=== PATIENT | female | born 1965 | race Caucasian/White ===

== ENCOUNTER → 2016-07-29 | Outpatient (CLI) | payer MEDICARE, OTHER ==
--- NOTE | 2016-07-29 10:14 | FL ---
EXAMINATION TYPE: FL barium swallow DATE OF EXAM ORDERED: 07/29/2016 10:10 AM HISTORY: Dysphagia. COMPARISON: None. FINDINGS: The esophagus distended normally with air and barium without evidence of obstructing or co nstricting disease. The mucosal pattern throughout the esophagus is normal. There is no significant h iatal hernia or reflux. Limited views of the stomach are normal. IMPRESSION: NORMAL AIR-CONTRAST ESOPHAGRAM. Fluoroscopy time: 1 minute
== END | disposition home or self-care (01) ==
LOC: RADFLWHC 09:26
PROVIDERS: ATTEND Otolaryngology
DX: K44.9 Diaphragmatic hernia without obstruction or gangrene (principal)
CPT/HCPCS: 74220

== ENCOUNTER → 2016-07-31 | Outpatient (CLI) | payer MEDICARE, OTHER | END | disposition home or self-care (01) | LOC: PTMAIN 09:10 | PROVIDERS: ATTEND Otolaryngology | DX: K21.9 Gastro-esophageal reflux disease without esophagitis (principal); J44.9 Chronic obstructive pulmonary disease, unspecified; J45.909 Unspecified asthma, uncomplicated; M79.7 Fibromyalgia | CPT/HCPCS: 31579 ==

== ENCOUNTER 2016-08-11 17:25 | Inpatient (IN) | payer MEDICARE, OTHER ==
[2016-08-11] MEDS ORDERED: methylPREDNISolone SOD SUCCI 125 MG/2 ML VIAL IV STA (18:28)
[2016-08-11] MEDS ORDERED: ALBUTEROL NEBULIZED 7.5 MG, IPRATROPIUM NEBULIZED 0.5 MG, SODIUM CHLORIDE 0.9% NEBULIZ ... INHALATION ONE ×3 (18:28)
[2016-08-11] MEDS ORDERED: SODIUM CHLORIDE 0.9% 1,000 ML IV STA (18:28)
--- NOTE | 2016-08-11 18:34 | ED ---
General Adult HPI - General Source: patient, RN notes reviewed Mode of arrival: ambulatory Limitations: no limitations <Ktarin Almanza - Last Filed: 08/11/16 21:21> <Paco Ha - Last Filed: 08/11/16 21:30> - General Chief complaint: Upper Respiratory Infection Stated complaint: dehydration Time Seen by Provider: 08/11/16 18:22 - History of Present Illness Initial comments: 50 yo female presents to the ER with cc of cough cold like symptoms. Patient states she's been sick for about 4 days. Patient states she went to her doctor on she was started on antibiotics and steroids. Patient states that she just is not getting better. Patient states that she has had a cough she has now developed some sputum production she does admit to fevers on and off. Patient states that she does have COPD she is on a breathing treatments however she lost her breathing machine. Patient states that she just does not feel like she is getting better. Patient states that she's been trying the antibiotics and steroids without any improvement so she thought that she should be reevaluated. Patient states that she is also unable to clench her thirst as well and that was concerning for her. Patient denies any recent fever, chills, chest pain, back pain, abdominal pain, nausea vomiting, numbness or tingling, dysuria or hematuria, constipation or diarrhea, headaches or visual changes, or any other current symptoms. (Katrin Almanza) - Related Data Home Medications Medication Instructions Recorded Confirmed ALPRAZolam [Xanax] 0.5 mg PO TID PRN 03/02/14 08/11/16 Butalb/Acetaminophen/Caffeine 1 tab PO QID PRN 03/02/14 08/11/16 [Fioricet 50-325-40 mg Tablet] Dicyclomine [Bentyl] 20 mg PO QID 03/02/14 08/11/16 Hydrocodone/Acetaminophen [[place] 1 tab PO TID 03/02/14 08/11/16 10-325] Montelukast [Singulair] 10 mg PO HS 03/02/14 08/11/16 lamoTRIgine [LaMICtal] 200 mg PO BID 03/02/14 08/11/16 Aspirin EC [Ecotrin Low Dose] 81 mg PO HS 06/04/16 08/11/16 Atenolol [Tenormin] 25 mg PO BID 06/04/16 08/11/16 Desvenlafaxine Succinate [Pristiq] 100 mg PO DAILY 06/04/16 08/11/16 Estrogens, Conjugated [Premarin] 0.9 mg PO DAILY 06/04/16 08/11/16 Gabapentin 600 mg PO TID 06/04/16 08/11/16 Omeprazole [PriLOSEC] 40 mg PO DAILY 08/11/16 08/11/16 Previous Rx's Medication Instructions Recorded Ondansetron [Zofran] 4 mg PO Q8HR PRN #15 tab 06/04/16 Allergies Allergy/AdvReac Type Severity Reaction Status Date / Time clindamycin Allergy Anaphylaxis Verified 08/11/16 19:16 divalproex sodium Allergy Rash/Hives Verified 08/11/16 19:16 [From Depakote] moxifloxacin [From Avelox] Allergy Unknown Verified 08/11/16 19:16 topiramate [From Topamax] Allergy Unknown Verified 08/11/16 19:16 zolmitriptan [From Zomig] Allergy Unknown Verified 08/11/16 19:16 acetaminophen [From Percocet] AdvReac Nausea Verified 08/11/16 19:16 oxycodone [From Percocet] AdvReac Nausea Verified 08/11/16 19:16 Review of Systems ROS Other: All systems not noted in ROS Statement are negative. <Katrin Almanza - Last Filed: 08/11/16 21:21> ROS Other: All systems not noted in ROS Statement are negative. <Paco Ha - Last Filed: 08/11/16 21:30> ROS Statement: Those systems with pertinent positive or pertinent negative responses have been documented in the HPI. Past Medical History Past Medical History: COPD, Fibromyalgia Additional Past Medical History / Comment(s): HERNIATED DISC, HEADACHES History of Any Multi-Drug Resistant Organisms: None Reported Past Surgical History: Ear Surgery, Hysterectomy Additional Past Surgical History / Comment(s): NASAL SURGERY; LUNG SURGERY - LOBECTOMY Past Psychological History: Anxiety, Depression Smoking Status: Former smoker Past Alcohol Use History: None Reported Past Drug Use History: None Reported <Katrin Almanza - Last Filed: 08/11/16 21:21> General Exam Limitations: no limitations General appearance: alert, in no apparent distress ENT exam: Present: normal exam, mucous membranes moist Neck exam: Present: normal inspection. Absent: tenderness, meningismus, lymphadenopathy Respiratory exam: Present: rhonchi, decreased breath sounds (Diffuse). Absent: respiratory distress, chest wall tenderness, accessory muscle use Cardiovascular Exam: Present: regular rate, normal rhythm, normal heart sounds. Absent: systolic murmur, diastolic murmur, rubs, gallop, clicks GI/Abdominal exam: Present: soft, normal bowel sounds. Absent: distended, tenderness, guarding, rebound, rigid Neurological exam: Present: alert, oriented X3, CN II-XII intact. Absent: motor sensory deficit Psychiatric exam: Present: normal affect, normal mood Skin exam: Present: warm, dry, intact, normal color. Absent: rash <Katrin Almanza - Last Filed: 08/11/16 21:21> Course <Katrin Almanza - Last Filed: 08/11/16 21:21> <Paco Ha - Last Filed: 08/11/16 21:30> Vital Signs 08/11/16 08/11/16 08/11/16 18:00 19:35 19:51 Temperature 98.0 F Pulse Rate 73 60 60 Respiratory 16 Rate Blood Pressure 101/56 O2 Sat by Pulse 93 L Oximetry 08/11/16 08/11/16 08/11/16 20:19 20:29 21:11 Temperature Pulse Rate 70 73 Respiratory Rate Blood Pressure O2 Sat by Pulse 89 L Oximetry - Reevaluation(s) Reevaluation #1: 08/11/16 21:29 I did personally do a [id number] examination the patient she is had a cough and shortness of breath for last 5 days. She is a former smoker who quit 6 years ago. She is influenza type B positive. Her lung sounds are diminished with expiratory wheezes. I did discuss the findings with her she will be admitted I did discuss the case with Dr. Kebede. (Paco Ha) Medical Decision Making - Lab Data Result diagrams: 08/11/16 19:30 08/11/16 19:30 - Radiology Data Radiology results: report reviewed, image reviewed <Katirn Almanza - Last Filed: 08/11/16 21:21> - Lab Data Result diagrams: 08/11/16 19:30 08/11/16 19:30 <LelandPaco - Last Filed: 08/11/16 21:30> - Medical Decision Making 50-year-old female presents for cough cold runny nose like symptoms. At this time patient does appear to have rhonchi throughout the lung angu[place] and continues to be low oxygen even after the breathing treatment. Patient does appear to be an associated PD exacerbation patient also does have basilar atelectasis due to the fever and the diagnosis of influenza we will start antibiotics as well as Tamiflu as well as steroids as well as breathing treatments for the patient we did place the patient on oxygen. She will be this time. Patient agreed with the plan. (Katrin Almanza) - Lab Data Lab Results 08/11/16 08/11/16 08/11/16 Range/Units 19:30 19:30 20:15 WBC 7.6 (3.8-10.6) k/uL RBC 4.76 (3.80-5.40) m/uL Hgb 14.1 (11.4-16.0) gm/dL Hct 43.5 (34.0-46.0) % MCV 91.4 (80.0-100.0) fL MCH 29.7 (25.0-35.0) pg MCHC 32.5 (31.0-37.0) g/dL RDW 13.6 (11.5-15.5) % Plt Count 205 (150-450) k/uL Neutrophils % 65 % Lymphocytes % 26 % Monocytes % 5 % Eosinophils % 0 % Basophils % 1 % Neutrophils # 4.9 (1.3-7.7) k/uL Lymphocytes # 2.0 (1.0-4.8) k/uL Monocytes # 0.3 (0-1.0) k/uL Eosinophils # 0.0 (0-0.7) k/uL Basophils # 0.1 (0-0.2) k/uL Sodium 142 (137-145) mmol/L Potassium 4.1 (3.5-5.1) mmol/L Chloride 104 (98-107) mmol/L Carbon Dioxide 26 (22-30) mmol/L Anion Gap 12 mmol/L BUN 12 (7-17) mg/dL Creatinine 0.71 (0.52-1.04) mg/dL Est GFR (MDRD) Af Amer >60 (>60 ml/min/1.73 sqM) Est GFR (MDRD) Non-Af >60 (>60 ml/min/1.73 sqM) Glucose 108 H (74-99) mg/dL Calcium 9.4 (8.4-10.2) mg/dL Total Bilirubin 0.4 (0.2-1.3) mg/dL AST 34 (14-36) U/L ALT 36 (9-52) U/L Alkaline Phosphatase 111 (38-126) U/L Total Protein 7.4 (6.3-8.2) g/dL Albumin 4.0 (3.5-5.0) g/dL Influenza Type A RNA Not Detected (Not Detectd) Influenza Type B (PCR) Detected H (Not Detectd) Group A Strep Rapid (Negative) 08/11/16 Range/Units 20:15 WBC (3.8-10.6) k/uL RBC (3.80-5.40) m/uL Hgb (11.4-16.0) gm/dL Hct (34.0-46.0) % MCV (80.0-100.0) fL MCH (25.0-35.0) pg MCHC (31.0-37.0) g/dL RDW (11.5-15.5) % Plt Count (150-450) k/uL Neutrophils % % Lymphocytes % % Monocytes % % Eosinophils % % Basophils % % Neutrophils # (1.3-7.7) k/uL Lymphocytes # (1.0-4.8) k/uL Monocytes # (0-1.0) k/uL Eosinophils # (0-0.7) k/uL Basophils # (0-0.2) k/uL Sodium (137-145) mmol/L Potassium (3.5-5.1) mmol/L Chloride (98-107) mmol/L Carbon Dioxide (22-30) mmol/L Anion Gap mmol/L BUN (7-17) mg/dL Creatinine (0.52-1.04) mg/dL Est GFR (MDRD) Af Amer (>60 ml/min/1.73 sqM) Est GFR (MDRD) Non-Af (>60 ml/min/1.73 sqM) Glucose (74-99) mg/dL Calcium (8.4-10.2) mg/dL Total Bilirubin (0.2-1.3) mg/dL AST (14-36) U/L ALT (9-52) U/L Alkaline Phosphatase (38-126) U/L Total Protein (6.3-8.2) g/dL Albumin (3.5-5.0) g/dL Influenza Type A RNA (Not Detectd) Influenza Type B (PCR) (Not Detectd) Group A Strep Rapid Negative (Negative) Disposition Time of Disposition: 21: Decision Date: 08/11/16 Decision Time: 21:22 <Katrin Almanza - Last Filed: 08/11/16 21:21> <Paco Ha - Last Filed: 08/11/16 21:30> Clinical Impression: COPD exacerbation, Failure of outpatient treatment, Influenza B Disposition: ADMITTED IP TO THIS HOSP Condition: Stable Referrals: Yakov Kebede MD [Primary Care Provider] - 1-2 days
[2016-08-11 20:14] LABS: Basophils # (A) 0.1 k/uL (0-0.2); Basophils % (A) 1 %; CH 30.8; CHCM 33.9; Eosinophils % (A) 0 %; HCT 43.5 % (34.0-46.0); HDW 2.66; HGB 14.1 gm/dL (11.4-16.0); Luc # (Auto) 0.29; Luc % (Auto) 4; Lymphocytes % (A) 26 %; MCH 29.7 pg (25.0-35.0); MCHC 32.5 g/dL (31.0-37.0); MCV 91.4 fL (80.0-100.0); Mean Platelet Volume 8.8; Monocytes # (A) 0.3 k/uL (0-1.0); Monocytes % (A) 5 %; Neutrophils # (A) 4.9 k/uL (1.3-7.7); Neutrophils % (A) 65 %; RBC 4.76 m/uL (3.80-5.40); RDW 13.6 % (11.5-15.5); WBC 7.6 k/uL (3.8-10.6); WBC (Perox) 7.34
[2016-08-11 20:16] LABS: ALT 36 U/L (9-52); AST 34 U/L (14-36); Alkaline Phosphatase 111 U/L (38-126); Anion Gap 12 mmol/L; Blood Urea Nitrogen 12 mg/dL (7-17); Calcium 9.4 mg/dL (8.4-10.2); Carbon Dioxide 26 mmol/L (22-30); Chloride 104 mmol/L (98-107); Glucose 108 mg/dL (74-99); Non-African American GFR(MDRD) >60 (>60 ml/min/1.73 sqM); Potassium 4.1 mmol/L (3.5-5.1); Sodium 142 mmol/L (137-145); Total Bilirubin 0.4 mg/dL (0.2-1.3); Total Protein 7.4 g/dL (6.3-8.2)
[2016-08-11] MEDS ORDERED: OSELTAMIVIR 75 MG CAP PO STA (21:09)
--- NOTE | 2016-08-11 21:10 | XR ---
EXAMINATION TYPE: XR chest 2V DATE OF EXAM: 08/11/2016 8:48 PM COMPARISON: Prior chest x-ray 26 March 2016 HISTORY: Cough, shortness of breath, COPD TECHNIQUE: Frontal and lateral views of the chest are obtained. FINDINGS: There is no pleural effusion, or pneumothorax seen. The cardiac silhouette size is within normal limits. Difficult to exclude some patchy density at the lung bases. There are prominent lung volumes. The osseous structures are intact. IMPRESSION: There may be some basilar atelectasis, difficult to exclude early airspace disease, foll ow-up as indicated.
[2016-08-11] MEDS ORDERED: ONDANSETRON 4 MG TAB PO PRN (21:25)
[2016-08-11] MEDS ORDERED: BUTALB/APAP/CAFF 50-325-40MG TAB PO PRN (21:25)
[2016-08-12] MEDS: methylPREDNISolone SOD SUCCI 125 MG/2 ML VIAL IV SCH ×4 (00:43→17:37)
[2016-08-12] MEDS: ALPRAZolam 0.5 MG TAB PO PRN (02:42)
[2016-08-12] MEDS: HYDROcodone/APAP 10-325MG 1 EACH TAB PO SCH ×4 (02:42→22:18)
[2016-08-12] MEDS: DICYCLOMINE 20 MG TAB PO SCH ×5 (02:43→20:58)
[2016-08-12] MEDS: GABAPENTIN 300 MG CAP PO SCH ×4 (02:43→20:58)
[2016-08-12 07:39] LABS: Glucose,Whole Blood 151 mg/dL (75-99)
[2016-08-12] MEDS: ATENOLOL 25 MG TAB PO SCH ×2 (08:18→20:59)
[2016-08-12] MEDS: DESVENLAFAXINE SUCCINATE 50 MG TAB.ER.24H PO SCH (08:21)
[2016-08-12] MEDS: ESTROGENS, CONJUGATED 0.3 MG TAB PO SCH (08:22)
[2016-08-12] MEDS: PANTOPRAZOLE 40 MG TABLET PO SCH (08:22)
[2016-08-12] MEDS: lamoTRIgine 100 MG TAB PO SCH ×2 (08:22→20:57)
[2016-08-12] MEDS: INSULIN LISPRO (humaLOG) 300 UNIT/3 ML VIAL SQ SCH ×4 (08:23→21:00)
[2016-08-12] MEDS ORDERED: BISACODYL 5 MG TABLET.DR PO PRN (08:25)
[2016-08-12 08:45] LABS: Basophils % (A) 0 %; CH 30.4; CHCM 33.1; Eosinophils % (A) 0 %; HCT 37.7 % (34.0-46.0); HDW 2.56; HGB 12.2 gm/dL (11.4-16.0); Luc # (Auto) 0.13; Luc % (Auto) 1; Lymphocytes % (A) 10 %; MCH 29.9 pg (25.0-35.0); MCHC 32.3 g/dL (31.0-37.0); MCV 92.4 fL (80.0-100.0); Monocytes # (A) 0.1 k/uL (0-1.0); Monocytes % (A) 1 %; Neutrophils % (A) 88 %; RBC 4.08 m/uL (3.80-5.40); RDW 13.4 % (11.5-15.5); WBC 10.3 k/uL (3.8-10.6); WBC (Perox) 10.72
[2016-08-12] MEDS: SODIUM CHLORIDE 0.9% 1,000 ML IV SCH ×2 (08:48→20:55)
[2016-08-12 08:49] LABS: ALT 32 U/L (9-52); AST 28 U/L (14-36); Alkaline Phosphatase 107 U/L (38-126); Anion Gap 13 mmol/L; Blood Urea Nitrogen 13 mg/dL (7-17); Calcium 9.2 mg/dL (8.4-10.2); Carbon Dioxide 22 mmol/L (22-30); Chloride 110 mmol/L (98-107); Glucose 181 mg/dL (74-99); Non-African American GFR(MDRD) >60 (>60 ml/min/1.73 sqM); Potassium 4.5 mmol/L (3.5-5.1); Sodium 145 mmol/L (137-145); Total Bilirubin 0.3 mg/dL (0.2-1.3); Total Protein 6.8 g/dL (6.3-8.2)
[2016-08-12] MEDS: DOCUSATE 100 MG CAP PO SCH ×2 (09:45→20:58)
[2016-08-12] MEDS: OSELTAMIVIR 75 MG CAP PO SCH ×2 (09:45→20:57)
[2016-08-12 11:48] LABS: Glucose,Whole Blood 141 mg/dL (75-99)
--- NOTE | 2016-08-12 12:32 | P.CNPUL ---
History of Present Illness Consult date: 08/12/16 Reason for consult: dyspnea, cough, COPD, other Chief complaint: Shortness of breath cough wheezing History of present illness: This is a 50-year-old female well-known to my service. She presented to the emergency room with complaints of cough and cold-like symptoms. She's been sick for about 4 days prior to admission. She apparently went to her primary doctor started on antibiotics and steroids. After that, she was just not getting any better. For that reason she presented to the emergency department. A chest x-ray really did not show any acute infiltrates. She apparently had influenza testing was positive. She was admitted and placed in isolation. Would not consider medications as yet. Again her primary complaints include chest tightness wheezing cough shortness of breath and some phlegm production. Review of Systems A 12 point review of system is positive for chest tightness wheezing cough shortness breath plan phlegm production under the pulmonary system. The rest of the 12 point review of system is essentially unremarkable. Past Medical History Past Medical History: COPD, Fibromyalgia, GERD/Reflux Additional Past Medical History / Comment(s): HERNIATED DISC, HEADACHES History of Any Multi-Drug Resistant Organisms: None Reported Past Surgical History: Ear Surgery, Hysterectomy Additional Past Surgical History / Comment(s): NASAL SURGERY; LUNG SURGERY - LOBECTOMY Past Anesthesia/Blood Transfusion Reactions: No Reported Reaction Past Psychological History: Anxiety, Depression Smoking Status: Former smoker Past Alcohol Use History: None Reported Past Drug Use History: None Reported - Past Family History Father Additional Family Medical History / Comment(s): kidney Transplant Brother(s) Additional Family Medical History / Comment(s): diverticulitis, bowel resection and colostomy Mother Family Medical History: AFIB, COPD, Fibromyalgia, Hypertension, Mitral Valve Prolapse (MVP), Osteoarthritis (OA), Thyroid Disorder Medications and Allergies Home Medications Medication Instructions Recorded Confirmed Type ALPRAZolam [Xanax] 0.5 mg PO TID PRN 03/02/14 08/11/16 History Butalb/Acetaminophen/Caffeine 1 tab PO QID PRN 03/02/14 08/11/16 History [Fioricet 50-325-40 mg Tablet] Dicyclomine [Bentyl] 20 mg PO QID 03/02/14 08/11/16 History Hydrocodone/Acetaminophen [[place] 1 tab PO TID 03/02/14 08/11/16 History 10-325] Montelukast [Singulair] 10 mg PO HS 03/02/14 08/11/16 History lamoTRIgine [LaMICtal] 200 mg PO BID 03/02/14 08/11/16 History Aspirin EC [Ecotrin Low Dose] 81 mg PO HS 06/04/16 08/11/16 History Atenolol [Tenormin] 25 mg PO BID 06/04/16 08/11/16 History Desvenlafaxine Succinate [Pristiq] 100 mg PO DAILY 06/04/16 08/11/16 History Estrogens, Conjugated [Premarin] 0.9 mg PO DAILY 06/04/16 08/11/16 History Gabapentin 600 mg PO TID 06/04/16 08/11/16 History Omeprazole [PriLOSEC] 40 mg PO DAILY 08/11/16 08/11/16 History Allergies Allergy/AdvReac Type Severity Reaction Status Date / Time clindamycin Allergy Anaphylaxis Verified 08/11/16 19:16 divalproex sodium Allergy Rash/Hives Verified 08/11/16 19:16 [From Depakote] moxifloxacin [From Avelox] Allergy Unknown Verified 08/11/16 19:16 topiramate [From Topamax] Allergy Unknown Verified 08/11/16 19:16 zolmitriptan [From Zomig] Allergy Unknown Verified 08/11/16 19:16 acetaminophen [From Percocet] AdvReac Nausea Verified 08/11/16 19:16 oxycodone [From Percocet] AdvReac Nausea Verified 08/11/16 19:16 Physical Exam Osteopathic Statement: *. No significant issues noted on an osteopathic structural exam other than those noted in the History and Physical/Consult. Vitals: Vital Signs Temp Pulse Pulse Resp BP BP BP 08/12/16 07:00 97.1 F L 78 20 92/45 08/12/16 00:05 08/11/16 23:30 98.3 F 89 20 95/49 08/11/16 23:06 97.8 F 87 18 107/53 Pulse Ox 08/12/16 07:00 90 L 08/12/16 00:05 93 L 08/11/16 23:30 89 L 08/11/16 23:06 97 Intake and Output 02/14/17 02/15/17 02/15/17 22:59 06:59 14:59 Intake Total 500 240 Output Total 50 Balance 450 240 Intake: Oral 500 240 Output: Urine 50 Other: # Voids 1 Weight 58.513 kg No acute distress, oriented 3. HEENT examination is grossly unremarkable. Mucous membranes are moist. No oral lesions. TMs EACs normal. Neck supple. Full range of motion. No adenopathy. No thyromegaly. Neck veins are flat. Cardiovascular examination reveals regular rhythm rate. S1-S2 normal. No S3- S4. No murmur. Lungs reveal some expiratory wheezes. There are high-pitched. No rhonchi. Not much in way of crackles. Breath sounds are slightly diminished. Abdomen soft bowel sounds are heard. Extremities are intact. Results - Laboratory Findings CBC and BMP: 08/12/16 07:53 08/12/16 07:53 Abnormal lab findings: Abnormal Labs 08/12/16 08/12/16 08/12/16 07:25 07:53 07:53 Neutrophils # 9.0 H Chloride 110 H Glucose 181 H POC Glucose (mg/dL) 151 H 08/12/16 11:43 Neutrophils # Chloride Glucose POC Glucose (mg/dL) 141 H - Diagnostic Findings Chest x-ray: image reviewed Assessment and Plan (1) COPD exacerbation Status: Acute (2) Failure of outpatient treatment Status: Acute (3) Influenza B Status: Acute Plan: Plan We'll make sure patient's on appropriate medications. She should be on DuoNeb' s 4 times a day and when necessary. Also should be on Symbicort 160/4.52 puffs twice a day. She should receive Solu-Medrol antibiotics orally and Tamiflu. Additional recommendations suggestions are forthcoming. Chest x-ray was normal my opinion. Time with Patient: Greater than 30
[2016-08-12 13:01] LABS: Hemoglobin A1C 5.7 % (4.2-6.1)
[2016-08-12 14:06] LABS: Appearance,Urine Clear (Clear); Bilirubin,Urine Negative (Negative); Glucose,Urine (UA) 2+ (Negative); Ketones,Urine Negative (Negative); Leukocyte Esterase,Urine Negative (Negative); Nitrite,Urine Negative (Negative); Protein,Urine Negative (Negative); Specific Gravity,Urine 1.016 (1.001-1.035); UA Billing (MACRO vs. MICRO) CHEM; Urobilinogen,Urine <2.0 mg/dL (<2.0)
--- NOTE | 2016-08-12 14:34 | P.HPIM ---
History of Present Illness H&P Date: 08/11/16 Chief Complaint: Shortness of breath 50-year-old female presented on the day of admission to the emergency room with a chief complaint of frequent nonproductive cough with developing shortness of breath felt like "the flu with flulike symptoms. Patient stated that she had just not been feeling well for at least 4 days. Did go to Dr. Cantu office last and was given a prescription for antibiotics and steroids. Patient stated that she did not feel any better after starting the treatment. Patient states that she was coughing up yellowish secretions on and off. Patient states that she does have a history of COPD however she lost her machine and was not taking breathing treatments patient was seen in the emergency room influenza type B was positive. Chest x-ray in the emergency room showed some basilar atelectasis difficult to exclude early airspace disease. Given the above clinical presentation the patient was admitted to the services of the attending. Review of Systems Essentially unremarkable except as mentioned in the present illness Past Medical History Past Medical History: COPD, Fibromyalgia, GERD/Reflux Additional Past Medical History / Comment(s): HERNIATED DISC, HEADACHES History of Any Multi-Drug Resistant Organisms: None Reported Past Surgical History: Ear Surgery, Hysterectomy Additional Past Surgical History / Comment(s): NASAL SURGERY; LUNG SURGERY - LOBECTOMY Past Anesthesia/Blood Transfusion Reactions: No Reported Reaction Past Psychological History: Anxiety, Depression Smoking Status: Former smoker Past Alcohol Use History: None Reported Past Drug Use History: None Reported - Past Family History Father Additional Family Medical History / Comment(s): kidney Transplant Brother(s) Additional Family Medical History / Comment(s): diverticulitis, bowel resection and colostomy Mother Family Medical History: AFIB, COPD, Fibromyalgia, Hypertension, Mitral Valve Prolapse (MVP), Osteoarthritis (OA), Thyroid Disorder Medications and Allergies Home Medications Medication Instructions Recorded Confirmed Type ALPRAZolam [Xanax] 0.5 mg PO TID PRN 03/02/14 08/11/16 History Butalb/Acetaminophen/Caffe[place] 1 tab PO QID PRN 03/02/14 08/11/16 History [Fioricet 50-325-40 mg Tablet] Dicyclomine [Bentyl] 20 mg PO QID 03/02/14 08/11/16 History Hydrocodone/Acetaminophen [[place] 1 tab PO TID 03/02/14 08/11/16 History 10-325] Montelukast [Singulair] 10 mg PO HS 03/02/14 08/11/16 History lamoTRIgine [LaMICtal] 200 mg PO BID 03/02/14 08/11/16 History Aspirin EC [Ecotrin Low Dose] 81 mg PO HS 06/04/16 08/11/16 History Atenolol [Tenormin] 25 mg PO BID 06/04/16 08/11/16 History Desvenlafaxine Succinate [Pristiq] 100 mg PO DAILY 06/04/16 08/11/16 History Estrogens, Conjugated [Premarin] 0.9 mg PO DAILY 06/04/16 08/11/16 History Gabapentin 600 mg PO TID 06/04/16 08/11/16 History Omeprazole [PriLOSEC] 40 mg PO DAILY 08/11/16 08/11/16 History Allergies Allergy/AdvReac Type Severity Reaction Status Date / Time clindamycin Allergy Anaphylaxis Verified 08/11/16 19:16 divalproex sodium Allergy Rash/Hives Verified 08/11/16 19:16 [From Depakote] moxifloxacin [From Avelox] Allergy Unknown Verified 08/11/16 19:16 topiramate [From Topamax] Allergy Unknown Verified 08/11/16 19:16 zolmitriptan [From Zomig] Allergy Unknown Verified 08/11/16 19:16 acetaminophen [From Percocet] AdvReac Nausea Verified 08/11/16 19:16 oxycodone [From Percocet] AdvReac Nausea Verified 08/11/16 19:16 Physical Exam Vitals: Vital Signs Temp Pulse Pulse Resp BP BP BP 08/12/16 07:00 97.1 F L 78 20 92/45 08/12/16 00:05 08/11/16 23:30 98.3 F 89 20 95/49 08/11/16 23:06 97.8 F 87 18 107/53 Pulse Ox 08/12/16 07:00 90 L 08/12/16 00:05 93 L 08/11/16 23:30 89 L 08/11/16 23:06 97 Intake and Output 08/11/16 08/12/16 08/12/16 22:59 06:59 14:59 Intake Total 500 240 Output Total 50 Balance 450 240 Intake: Oral 500 240 Output: Urine 50 Other: # Voids 1 Weight 58.513 kg Physical exam 50-year-old female looking older than stated age sitting up in bed states still feeling short of breath with a dry nonproductive cough noted lungs oriented 3 Lungs posterior bilateral expiratory wheezing no rhonchi diminished at the bases Heart S1-S2 audible regular no murmur noted Abdomen soft nontender no reports of nausea vomiting no palpable organomegaly bowel tones times 4 quadrants Extremities no edema noted Results CBC & Chem 7: 08/12/16 07:53 08/12/16 07:53 Labs: Abnormal Lab Results - Last 24 Hours (Table) 08/12/16 08/12/16 08/12/16 Range/Units 07:25 07:53 07:53 Neutrophils # 9.0 H (1.3-7.7) k/uL Chloride 110 H (98-107) mmol/L Glucose 181 H (74-99) mg/dL POC Glucose (mg/dL) 151 H (75-99) mg/dL Urine Glucose (UA) (Negative) 08/12/16 08/12/16 Range/Units 11:43 13:30 Neutrophils # (1.3-7.7) k/uL Chloride (98-107) mmol/L Glucose (74-99) mg/dL POC Glucose (mg/dL) 141 H (75-99) mg/dL Urine Glucose (UA) 2+ H (Negative) Thrombosis Risk Factor Assmnt - Choose All That Apply Any of the Below Risk Factors Present?: Yes Each Factor Represents 1 point: Abnormal pulmonary function (COPD), Age 41-60 years Other Risk Factors: No Other congenital or acquired thrombophilia - If yes, enter type in comment: No Thrombosis Risk Factor Assessment Total Risk Factor Score: 2 Thrombosis Risk Factor Assessment Level: Low Risk Assessment and Plan Plan: Impression Present on admission shortness of breath likely due to an acute exacerbation of COPD Present on admission influenza B positive Present on admission acute exacerbation of COPD failed outpatient treatment Anxiety depressive disorder nonspecified Former smoker quit 6 years prior 1 pack daily greater than a 20 year history Plan Await pulmonology eval Resume home meds as appropriate Updraft treatments as ordered DVT and GI prophylaxis Further recommendations pending The above dictated assessment and findings were discussed with dr cantu . Impression and the plan of care have been dictated as directed. Tanya Castle nurse practitioner acting as a scribe for Dr. Cantu
--- NOTE | 2016-08-12 14:36 | P.PN ---
Subjective 50-year-old being seen with the attending on rounds this morning sitting up in bed states has been coughing frequently not able to cough up secretions. Patient states the coughing does cause some chest tightness. Patient is sitting up and does not appear in any acute distress has remained afebrile. On room air sats are 89% on 2 L 93% Objective - Vital Signs Vital signs: Vital Signs Temp 97.1 F L 08/12/16 07:00 Pulse 78 08/12/16 07:00 Resp 20 08/12/16 07:00 BP 92/45 08/12/16 07:00 Pulse Ox 90 L 08/12/16 07:00 Intake & Output 08/11/16 08/12/16 08/12/16 18:59 06:59 18:59 Intake Total 500 240 Output Total 50 Balance 450 240 Weight 58.513 kg Intake: Oral 500 240 Output: Urine 50 Other: # Voids 1 - Exam Physical exam 50-year-old female looking stated age sitting up in bed does not appear in any acute distress Lungs diminished at the bases posteriorly with fine rhonchi a few prolonged expiratory wheezing noted a dry non-cough noted Heart S1-S2 audible regular Abdomen soft nontender no reports of nausea vomiting no frequent stooling no palpable organomegaly Extremities no calf tenderness - Labs CBC & Chem 7: 08/12/16 07:53 08/12/16 07:53 Labs: Abnormal Lab Results - Last 24 Hours (Table) 08/12/16 08/12/16 08/12/16 Range/Units 07:25 07:53 07:53 Neutrophils # 9.0 H (1.3-7.7) k/uL Chloride 110 H (98-107) mmol/L Glucose 181 H (74-99) mg/dL POC Glucose (mg/dL) 151 H (75-99) mg/dL Urine Glucose (UA) (Negative) 08/12/16 08/12/16 Range/Units 11:43 13:30 Neutrophils # (1.3-7.7) k/uL Chloride (98-107) mmol/L Glucose (74-99) mg/dL POC Glucose (mg/dL) 141 H (75-99) mg/dL Urine Glucose (UA) 2+ H (Negative) Assessment and Plan Plan: Impression Present on admission shortness of breath likely due to an acute exacerbation of COPD Present on admission influenza B positive Present on admission acute exacerbation of COPD failed outpatient treatment Anxiety depressive disorder nonspecified Former smoker quit 6 years prior 1 pack daily greater than a 20 year history Plan pulmonology eval recommendations noted and appreciated Resume home meds as appropriate Updraft treatments as ordered DVT and GI prophylaxis Further recommendations pending The above dictated assessment and findings were discussed with dr cantu . Impression and the plan of care have been dictated as directed. Tanya Castle nurse practitioner acting as a scribe for Dr. Cantu
[2016-08-12] MEDS: HEPARIN SODIUM,PORCINE 5,000 UNIT/ML 1 ML VIAL SQ SCH (16:48)
[2016-08-12 17:04] LABS: Glucose,Whole Blood 139 mg/dL (75-99)
[2016-08-12] MEDS: SYMBICORT 160-4.5 MCG INHALER INHALATION SCH (20:12)
[2016-08-12] MEDS: MONTELUKAST 10 MG TAB PO SCH (20:58)
[2016-08-12] MEDS: ASPIRIN 81 MG CHEW PO SCH (20:58)
[2016-08-12] MEDS ORDERED: FAMOTIDINE 20 MG TAB PO SCH (21:00)
[2016-08-12 21:21] LABS: Glucose,Whole Blood 141 mg/dL (75-99)
[2016-08-12] MEDS: IPRATROPIUM-ALBUTEROL 3 ML NEB INHALATION PRN (21:44)
[2016-08-13] MEDS: HEPARIN SODIUM,PORCINE 5,000 UNIT/ML 1 ML VIAL SQ SCH ×4 (00:39→23:18)
[2016-08-13] MEDS: methylPREDNISolone SOD SUCCI 125 MG/2 ML VIAL IV SCH ×5 (00:39→23:18)
[2016-08-13] MEDS: SODIUM CHLORIDE 0.9% 1,000 ML IV SCH ×3 (06:40→23:35)
[2016-08-13 08:03] LABS: Glucose,Whole Blood 121 mg/dL (75-99)
[2016-08-13] MEDS: INSULIN LISPRO (humaLOG) 300 UNIT/3 ML VIAL SQ SCH ×4 (08:06→21:17)
[2016-08-13] MEDS: GABAPENTIN 300 MG CAP PO SCH ×3 (08:10→21:09)
[2016-08-13] MEDS: DICYCLOMINE 20 MG TAB PO SCH ×4 (08:10→21:09)
[2016-08-13] MEDS: HYDROcodone/APAP 10-325MG 1 EACH TAB PO SCH ×3 (08:10→21:07)
[2016-08-13] MEDS: DOCUSATE 100 MG CAP PO SCH ×2 (08:10→21:09)
[2016-08-13] MEDS: OSELTAMIVIR 75 MG CAP PO SCH ×2 (08:10→21:09)
[2016-08-13] MEDS: PANTOPRAZOLE 40 MG TABLET PO SCH (08:10)
[2016-08-13] MEDS: lamoTRIgine 100 MG TAB PO SCH ×2 (08:10→21:09)
[2016-08-13] MEDS: DESVENLAFAXINE SUCCINATE 50 MG TAB.ER.24H PO SCH (08:11)
[2016-08-13] MEDS: ESTROGENS, CONJUGATED 0.3 MG TAB PO SCH (08:11)
[2016-08-13] MEDS: ATENOLOL 25 MG TAB PO SCH ×2 (08:11→21:09)
[2016-08-13] MEDS: IPRATROPIUM-ALBUTEROL 3 ML NEB INHALATION PRN (09:03)
[2016-08-13] MEDS: SYMBICORT 160-4.5 MCG INHALER INHALATION SCH ×2 (09:03→20:13)
--- NOTE | 2016-08-13 10:27 | P.PN ---
Subjective 50-year-old female being seen on rounds this morning is sitting up in bed. Patient states that she noted that she's having tremors to her hands in which she's concerned about. No visible tremors noted no blurred vision denies headache no weakness no facial droop Stated that it occurred overnight. Patient states breathing feels slightly improved. No cough noted. Has remained afebrile Objective - Vital Signs Vital signs: Vital Signs Temp 97.3 F L 08/13/16 07:00 Pulse 72 08/13/16 09:19 Resp 20 08/13/16 07:00 BP 100/58 08/13/16 07:00 Pulse Ox 93 L 08/13/16 07:00 Intake & Output 08/12/16 08/13/16 08/13/16 18:59 06:59 18:59 Intake Total 740 200 240 Output Total 400 Balance 340 200 240 Weight 58.513 kg Intake: Intake, IV Titration 500 Amount Sodium Chloride 0.9% 1, 500 000 ml @ 100 mls/hr IV . Q10H [facility] Rx#:[id number] Oral 240 200 240 Output: Urine 400 Other: Voiding Method Toilet Toilet # Voids 1 2 - Exam Physical exam 50-year-old female sitting up in bed respiratory treatment in progress patient states she's had episodes of tremors in her hands feel shaky Lungs coarse rhonchi throughout diminished at the bases no wheezing no productive cough noted on room air sats are documented 93% Heart S1-S2 audible and regular Abdomen soft nontender reports no nausea vomiting Extremities no edema no visible tremors noted no weakness noted to the upper or lower extremities moves all extremities appropriately - Labs CBC & Chem 7: 08/12/16 07:53 08/12/16 07:53 Labs: Abnormal Lab Results - Last 24 Hours (Table) 08/12/16 08/12/16 08/12/16 Range/Units 11:43 13:30 17:02 POC Glucose (mg/dL) 141 H 139 H (75-99) mg/dL Urine Glucose (UA) 2+ H (Negative) 08/12/16 08/13/16 Range/Units 20:53 07:50 POC Glucose (mg/dL) 141 H 121 H (75-99) mg/dL Urine Glucose (UA) (Negative) Microbiology - Last 24 Hours (Table) 08/12/16 13:30 Urine Culture - Preliminary Urine,Clean Catch Assessment and Plan Plan: Impression Present on admission shortness of breath likely due to an acute exacerbation of COPD Present on admission influenza B positive Present on admission acute exacerbation of COPD failed outpatient treatment Anxiety depressive disorder nonspecified Former smoker quit 6 years prior 1 pack daily greater than a 20 year history History of a mood disorder nonspecified Plan pulmonology eval recommendations noted and appreciated Resume home meds as appropriate Updraft treatments as ordered DVT and GI prophylaxis Further recommendations pending Consult neurology Solu-Medrol 60 IV every 6 per pulmonology's recommendations The above dictated assessment and findings were discussed with dr cantu . Impression and the plan of care have been dictated as directed. Tanya Castle nurse practitioner acting as a scribe for Dr. Cantu
[2016-08-13 12:33] LABS: Glucose,Whole Blood 171 mg/dL (75-99)
--- NOTE | 2016-08-13 14:24 | P.PN ---
Subjective Progress note dated 08/13/2016 This is a 50-year-old female who was seen yesterday in consultation. She suffers from significant COPD. She came with a COPD exacerbation. Started as an upper respiratory infection or may be a sinus infection. Occurred about 4 days prior to admission. She was hoping to fight it off at home. She is feeling a bit better. She will have a neurologist come see her for some muscle cramping or spasms. Her primary doctor is Dr. Kebede. She was seen today by Dr. nicole arnold Objective - Vital Signs Vital signs: Vital Signs Temp 97.3 F L 08/13/16 07:00 Pulse 72 08/13/16 09:19 Resp 20 08/13/16 07:00 BP 100/58 08/13/16 07:00 Pulse Ox 93 L 08/13/16 07:00 Intake & Output 08/12/16 08/13/16 08/13/16 18:59 06:59 18:59 Intake Total 740 200 240 Output Total 400 Balance 340 200 240 Weight 58.513 kg Intake: Intake, IV Titration 500 Amount Sodium Chloride 0.9% 1, 500 000 ml @ 100 mls/hr IV . Q10H [facility] Rx#:[id number] Oral 240 200 240 Output: Urine 400 Other: Voiding Method Toilet Toilet # Voids 1 2 1 - Exam No acute distress, oriented 3. Sitting up in bed. HEENT examination is grossly unremarkable. Supple. Full range of motion. No adenopathy. Neck veins are flat. Cardiovascular examination reveals regular rhythm rate. S1-S2 normal. There is no heart murmur. Lungs reveal some coarse wet rhonchi. Breath sounds diminished. Slight prolongation. No crackles. Abdomen soft bowel sounds are heard. Extremities are intact. - Labs CBC & Chem 7: 08/12/16 07:53 08/12/16 07:53 Labs: Abnormal Lab Results - Last 24 Hours (Table) 08/12/16 08/12/16 08/13/16 Range/Units 17:02 20:53 07:50 POC Glucose (mg/dL) 139 H 141 H 121 H (75-99) mg/dL 08/13/16 Range/Units 12:17 POC Glucose (mg/dL) 171 H (75-99) mg/dL Microbiology - Last 24 Hours (Table) 08/12/16 13:30 Urine Culture - Preliminary Urine,Clean Catch Assessment and Plan (1) COPD exacerbation Status: Acute (2) Failure of outpatient treatment Status: Acute (3) Influenza B Status: Acute Plan: Plan We'll make sure patient's on appropriate medications. She should be on DuoNeb' s 4 times a day and when necessary. Also should be on Symbicort 160/4.52 puffs twice a day. She should receive Solu-Medrol antibiotics orally and Tamiflu. Additional recommendations suggestions are forthcoming. Chest x-ray was normal my opinion. Plan dated 08/13/2016 The patient is doing better. We'll continue to follow closely. No additional recommendations are made. The patient will continue on short acting beta agonist, short acting muscarinic antagonist, long-acting beta agonist, and inhaled corticosteroids. She also stay on systemic corticosteroids and oral antibiotics. Probable discharge in next 24 hours or so. Time with Patient: Less than 30
[2016-08-13 16:59] LABS: Glucose,Whole Blood 135 mg/dL (75-99)
[2016-08-13 20:57] LABS: Glucose,Whole Blood 125 mg/dL (75-99)
[2016-08-13] MEDS: ASPIRIN 81 MG CHEW PO SCH (21:08)
[2016-08-13] MEDS: MONTELUKAST 10 MG TAB PO SCH (21:09)
[2016-08-13] MEDS: ALPRAZolam 0.5 MG TAB PO PRN (23:17)
[2016-08-14] MEDS: methylPREDNISolone SOD SUCCI 125 MG/2 ML VIAL IV SCH ×2 (06:18→13:11)
[2016-08-14 07:08] LABS: Glucose,Whole Blood 118 mg/dL (75-99)
[2016-08-14] MEDS: SYMBICORT 160-4.5 MCG INHALER INHALATION SCH ×2 (07:13→21:05)
[2016-08-14] MEDS: INSULIN LISPRO (humaLOG) 300 UNIT/3 ML VIAL SQ SCH ×4 (07:40→21:25)
[2016-08-14] MEDS: HEPARIN SODIUM,PORCINE 5,000 UNIT/ML 1 ML VIAL SQ SCH ×2 (09:57→16:33)
[2016-08-14] MEDS: ATENOLOL 25 MG TAB PO SCH ×2 (09:57→21:57)
[2016-08-14] MEDS: DOCUSATE 100 MG CAP PO SCH ×2 (09:58→20:20)
[2016-08-14] MEDS: DICYCLOMINE 20 MG TAB PO SCH ×4 (09:58→21:24)
[2016-08-14] MEDS: ESTROGENS, CONJUGATED 0.3 MG TAB PO SCH (09:58)
[2016-08-14] MEDS: DESVENLAFAXINE SUCCINATE 50 MG TAB.ER.24H PO SCH (09:58)
[2016-08-14] MEDS: HYDROcodone/APAP 10-325MG 1 EACH TAB PO SCH ×3 (09:59→21:24)
[2016-08-14] MEDS: GABAPENTIN 300 MG CAP PO SCH ×3 (09:59→21:24)
[2016-08-14] MEDS: lamoTRIgine 100 MG TAB PO SCH ×2 (10:01→20:20)
[2016-08-14] MEDS: OSELTAMIVIR 75 MG CAP PO SCH ×2 (10:01→21:23)
[2016-08-14] MEDS: PANTOPRAZOLE 40 MG TABLET PO SCH (10:02)
[2016-08-14] MEDS: SODIUM CHLORIDE 0.9% 1,000 ML IV SCH ×2 (10:05→20:16)
[2016-08-14 12:27] LABS: Glucose,Whole Blood 123 mg/dL (75-99)
--- NOTE | 2016-08-14 13:42 | P.PN ---
Subjective Progress note dated 08/13/2016 This is a 50-year-old female who was seen yesterday in consultation. She suffers from significant COPD. She came with a COPD exacerbation. Started as an upper respiratory infection or may be a sinus infection. Occurred about 4 days prior to admission. She was hoping to fight it off at home. She is feeling a bit better. She will have a neurologist come see her for some muscle cramping or spasms. Her primary doctor is Dr. Kebede. She was seen today by Dr. nicole arnold Progress note dated 08/14/2016 This is a 50-year-old female with history of underlying COPD from chronic tobacco use. She is doing better. Less short of breath. Less cough. Less wheezing and phlegm production. Likely to be discharged tomorrow according to her. See both her and her mother in my office. Both have been smoking for many years. Anyway the patient is doing much better. We did notice some tinea versicolor on her back and I told her how to go about treating that. Objective - Vital Signs Vital signs: Vital Signs Temp 97.1 F L 08/14/16 07:00 Pulse 59 L 08/14/16 07:00 Resp 20 08/14/16 07:00 BP 114/72 08/14/16 07:00 Pulse Ox 91 L 08/14/16 07:00 Intake & Output 08/13/16 08/14/16 08/14/16 18:59 06:59 18:59 Intake Total 240 300 Balance 240 300 Intake: Oral 240 300 Other: Voiding Method Toilet # Voids 1 2 # Bowel Movements 0 - Exam No acute distress, oriented 3. Sitting up in bed. HEENT examination is grossly unremarkable. Supple. Full range of motion. No adenopathy. Neck veins are flat. Cardiovascular examination reveals regular rhythm rate. S1-S2 normal. There is no heart murmur. Lungs reveal some mild dry rhonchi. Breath sounds are diminished bilaterally. No wheezes. No crackles. Slight prolongation on forced maneuver. Abdomen soft bowel sounds are heard. Extremities are intact. - Labs CBC & Chem 7: 08/12/16 07:53 08/12/16 07:53 Labs: Abnormal Lab Results - Last 24 Hours (Table) 02/16/17 02/16/17 02/17/17 Range/Units 16:52 20:53 07:01 POC Glucose (mg/dL) 135 H 125 H 118 H (75-99) mg/dL 08/14/16 Range/Units 12:26 POC Glucose (mg/dL) 123 H (75-99) mg/dL Microbiology - Last 24 Hours (Table) 08/12/16 13:30 Urine Culture - Final Urine,Clean Catch Assessment and Plan (1) COPD exacerbation Status: Acute (2) Failure of outpatient treatment Status: Acute (3) Influenza B Status: Acute Plan: Plan We'll make sure patient's on appropriate medications. She should be on DuoNeb' s 4 times a day and when necessary. Also should be on Symbicort 160/4.52 puffs twice a day. She should receive Solu-Medrol antibiotics orally and Tamiflu. Additional recommendations suggestions are forthcoming. Chest x-ray was normal my opinion. Plan dated 08/13/2016 The patient is doing better. We'll continue to follow closely. No additional recommendations are made. The patient will continue on short acting beta agonist, short acting muscarinic antagonist, long-acting beta agonist, and inhaled corticosteroids. She also stay on systemic corticosteroids and oral antibiotics. Probable discharge in next 24 hours or so. Plan dated 08/14/2016 The patient's chest x-ray labs and medications are all reviewed. Adjustments are made. The patient is doing better. Likely discharge in the morning. No additional recommendations are made. We'll continue to follow. She'll follow me in the office. Time with Patient: Less than 30
--- NOTE | 2016-08-14 14:37 | P.PN ---
Subjective 50-year-old female being seen on rounds. Patient states breathing feels better. There's been no tremors noted. Patients being followed by pulmonology. Patients being treated for acute exacerbation COPD failed outpatient treatment with influenza B. Pulmonology indicated the patient could be discharged within the next 24 hours if there are no new clinical findings Objective - Vital Signs Vital signs: Vital Signs Temp 97.1 F L 08/14/16 07:00 Pulse 59 L 08/14/16 07:00 Resp 20 08/14/16 07:00 BP 114/72 08/14/16 07:00 Pulse Ox 91 L 08/14/16 07:00 Intake & Output 08/13/16 08/14/16 08/14/16 18:59 06:59 18:59 Intake Total 240 300 Balance 240 300 Intake: Oral 240 300 Other: Voiding Method Toilet # Voids 1 2 # Bowel Movements 0 - Exam Physical exam 50-year-old female resting comfortably in bed appears in no acute distress oriented 3 talkative Lungs diminished at the bases otherwise adequate air movement no wheezing rales or rhonchi no cough noted Heart S1-S2 audible regular Abdomen soft nontender no reports of nausea vomiting no palpable organomegaly Extremities no edema no tremors noted - Labs CBC & Chem 7: 08/12/16 07:53 08/12/16 07:53 Labs: Abnormal Lab Results - Last 24 Hours (Table) 08/13/16 08/13/16 08/14/16 Range/Units 16:52 20:53 07:01 POC Glucose (mg/dL) 135 H 125 H 118 H (75-99) mg/dL 08/14/16 Range/Units 12:26 POC Glucose (mg/dL) 123 H (75-99) mg/dL Microbiology - Last 24 Hours (Table) 08/12/16 13:30 Urine Culture - Final Urine,Clean Catch Assessment and Plan Plan: Impression Present on admission shortness of breath likely due to an acute exacerbation of COPD Present on admission influenza B positive Present on admission acute exacerbation of COPD failed outpatient treatment Anxiety depressive disorder nonspecified Former smoker quit 6 years prior 1 pack daily greater than a 20 year history History of a mood disorder nonspecified Plan pulmonology eval recommendations noted and appreciated Resume home meds as appropriate Updraft treatments as ordered DVT and GI prophylaxis Further recommendations pending Consult neurology Prednisone 40 mg daily Probable discharge in the next 24 hours The above dictated assessment and findings were discussed with dr capone covering for dr cantu . Impression and the plan of care have been dictated as directed. Tanya Castle nurse practitioner acting as a scribe for dr capone covering for Dr. Cantu
[2016-08-14 17:29] LABS: Glucose,Whole Blood 111 mg/dL (75-99)
[2016-08-14] MEDS: MONTELUKAST 10 MG TAB PO SCH (20:20)
[2016-08-14] MEDS: ASPIRIN 81 MG CHEW PO SCH (20:20)
[2016-08-14 21:21] LABS: Glucose,Whole Blood 144 mg/dL (75-99)
[2016-08-14] MEDS: ALPRAZolam 0.5 MG TAB PO PRN (22:24)
[2016-08-15] MEDS: HEPARIN SODIUM,PORCINE 5,000 UNIT/ML 1 ML VIAL SQ SCH ×2 (00:01→08:27)
[2016-08-15] MEDS: SODIUM CHLORIDE 0.9% 1,000 ML IV SCH (06:28)
[2016-08-15 07:32] LABS: Glucose,Whole Blood 88 mg/dL (75-99)
[2016-08-15 07:39] VITALS: BP 120/74; PULSE 49; RESP 18; TEMP 98.7
[2016-08-15] MEDS: SYMBICORT 160-4.5 MCG INHALER INHALATION SCH (08:00)
[2016-08-15] MEDS: INSULIN LISPRO (humaLOG) 300 UNIT/3 ML VIAL SQ SCH ×2 (08:27→14:01)
[2016-08-15] MEDS: ATENOLOL 25 MG TAB PO SCH (08:27)
[2016-08-15] MEDS: GABAPENTIN 300 MG CAP PO SCH (08:28)
[2016-08-15] MEDS: ESTROGENS, CONJUGATED 0.3 MG TAB PO SCH (08:28)
[2016-08-15] MEDS: lamoTRIgine 100 MG TAB PO SCH (08:28)
[2016-08-15] MEDS: PANTOPRAZOLE 40 MG TABLET PO SCH (08:29)
[2016-08-15] MEDS: DICYCLOMINE 20 MG TAB PO SCH ×2 (08:29→14:01)
[2016-08-15] MEDS: DOCUSATE 100 MG CAP PO SCH (08:29)
[2016-08-15] MEDS: OSELTAMIVIR 75 MG CAP PO SCH (08:30)
[2016-08-15] MEDS: ALPRAZolam 0.5 MG TAB PO PRN (08:30)
[2016-08-15] MEDS: DESVENLAFAXINE SUCCINATE 50 MG TAB.ER.24H PO SCH (08:30)
[2016-08-15] MEDS: HYDROcodone/APAP 10-325MG 1 EACH TAB PO SCH (08:33)
[2016-08-15] MEDS ORDERED: predniSONE 20 MG TAB PO SCH (09:00)
[2016-08-15] MEDS ORDERED: AZITHROMYCIN 500 MG TAB PO SCH (09:00)
[2016-08-15 12:34] LABS: Glucose,Whole Blood 108 mg/dL (75-99)
--- NOTE | 2016-08-15 12:49 | P.PN ---
Subjective Progress note dated 08/13/2016 This is a 50-year-old female who was seen yesterday in consultation. She suffers from significant COPD. She came with a COPD exacerbation. Started as an upper respiratory infection or may be a sinus infection. Occurred about 4 days prior to admission. She was hoping to fight it off at home. She is feeling a bit better. She will have a neurologist come see her for some muscle cramping or spasms. Her primary doctor is Dr. Kebede. She was seen today by Dr. nicole arnold Progress note dated 08/14/2016 This is a 50-year-old female with history of underlying COPD from chronic tobacco use. She is doing better. Less short of breath. Less cough. Less wheezing and phlegm production. Likely to be discharged tomorrow according to her. See both her and her mother in my office. Both have been smoking for many years. Anyway the patient is doing much better. We did notice some tinea versicolor on her back and I told her how to go about treating that. Progress note dated 08/15/2016 This is a 50-year-old female admitted with a diagnosis of COPD with COPD exacerbation, secondary to chronic tobacco use. She also has a previous history of spontaneous left pneumothorax. Anyway the patient is doing much better. Could be discharged home. She'll be discharged home on a prednisone burst and taper beginning with 40 mg to be reduced by 10 mg every 4 days and a short course of antibiotics. She would also like something for cough and I would recommend Tessalon Perles 100 mg 3 times a day and a stool softener. She should follow-up with me in the office either late next week or the week after. She should also see her primary doctor as well. Objective - Vital Signs Vital signs: Vital Signs Temp 98.7 F 08/15/16 07:00 Pulse 49 L 08/15/16 07:00 Resp 18 08/15/16 07:00 BP 120/74 08/15/16 07:00 Pulse Ox 95 08/15/16 07:00 Intake & Output 08/14/16 08/15/16 08/15/16 18:59 06:59 18:59 Other: # Voids 2 2 - Exam No acute distress, oriented 3. Sitting up in bed. HEENT examination is grossly unremarkable. Supple. Full range of motion. No adenopathy. Neck veins are flat. Cardiovascular examination reveals regular rhythm rate. S1-S2 normal. There is no heart murmur. Lungs reveal some mild dry rhonchi. Breath sounds are diminished bilaterally. No wheezes. No crackles. Slight prolongation on forced maneuver. Abdomen soft bowel sounds are heard. Extremities are intact. - Labs CBC & Chem 7: 08/12/16 07:53 08/12/16 07:53 Labs: Abnormal Lab Results - Last 24 Hours (Table) 08/14/16 08/14/16 08/15/16 Range/Units 17:27 21:02 12:33 POC Glucose (mg/dL) 111 H 144 H 108 H (75-99) mg/dL Assessment and Plan (1) COPD exacerbation Status: Acute (2) Failure of outpatient treatment Status: Acute (3) Influenza B Status: Acute Plan: Plan We'll make sure patient's on appropriate medications. She should be on DuoNeb' s 4 times a day and when necessary. Also should be on Symbicort 160/4.52 puffs twice a day. She should receive Solu-Medrol antibiotics orally and Tamiflu. Additional recommendations suggestions are forthcoming. Chest x-ray was normal my opinion. Plan dated 08/13/2016 The patient is doing better. We'll continue to follow closely. No additional recommendations are made. The patient will continue on short acting beta agonist, short acting muscarinic antagonist, long-acting beta agonist, and inhaled corticosteroids. She also stay on systemic corticosteroids and oral antibiotics. Probable discharge in next 24 hours or so. Plan dated 08/14/2016 The patient's chest x-ray labs and medications are all reviewed. Adjustments are made. The patient is doing better. Likely discharge in the morning. No additional recommendations are made. We'll continue to follow. She'll follow me in the office. Plan dated 08/15/2016 This is a 50-year-old female that on my opinion could be discharged home today. She came with a COPD exacerbation. She should be discharged home with her usual medications. In addition, she should go home with a prednisone burst and taper, beginning with 40 mg a day for 4 days 30 mg a day for 4 days 20 a day for 4 days and then finally 10 multiple times a day for 4 days. She should be discharged home on a short course of antibiotics for 5-7 days. Options would include Bactrim Augmentin Zithromax and Omnicef Ceftin, etc. This would depend on her ALLERGY profile. In addition, she wants something for cough and I would recommend Tessalon Perles 100 mg 3 times a day. Probably she would like a stool softener. The primary can take care of all of this. Other than that she' s doing reasonably well. I've asked to come see me in the office. We'll continue to follow. Prognosis is guarded. Time with Patient: Less than 30
--- NOTE | 2016-08-15 13:20 | P.PN ---
Subjective Principal diagnosis: Influenza pneumonia Patient seen and examined. Patient was admitted for tracheobronchitis and was found be influenza B positive. However her chest x-ray was negative for pneumonia. The patient states that she has a continued cough. She states cough syrup makes her throw up. She is cleared from pulmonary standpoint for discharge home. Objective - Vital Signs Vital signs: Vital Signs Temp 98.7 F 08/15/16 07:00 Pulse 49 L 08/15/16 07:00 Resp 18 08/15/16 07:00 BP 120/74 08/15/16 07:00 Pulse Ox 95 08/15/16 07:00 Intake & Output 08/14/16 08/15/16 08/15/16 18:59 06:59 18:59 Other: # Voids 2 2 - Exam 50-year-old female resting comfortably in bed appears in no acute distress oriented 3 talkative Lungs diminished at the bases otherwise adequate air movement no wheezing rales or rhonchi no cough noted Heart S1-S2 audible regular Abdomen soft nontender no reports of nausea vomiting no palpable organomegaly Extremities no edema no tremors noted - Labs CBC & Chem 7: 08/12/16 07:53 08/12/16 07:53 Labs: Abnormal Lab Results - Last 24 Hours (Table) 08/14/16 08/14/16 08/15/16 Range/Units 17:27 21:02 12:33 POC Glucose (mg/dL) 111 H 144 H 108 H (75-99) mg/dL Assessment and Plan Plan: Present on admission shortness of breath likely due to an acute exacerbation of COPD Present on admission influenza B positive Present on admission acute exacerbation of COPD failed outpatient treatment Tracheobronchitis Anxiety depressive disorder nonspecified Former smoker quit 6 years prior 1 pack daily greater than a 20 year history History of a mood disorder nonspecified New tremors Plan Pulmonology eval recommendations noted and appreciated Resume home meds as appropriate Updraft treatments as ordered DVT and GI prophylaxis Further recommendations pending Consult neurology, recommendations pending. We will discharge patient home once cleared by neurology. Prednisone 40 mg daily
--- NOTE | 2016-08-15 13:28 | P.DS ---
Providers Date of admission: 08/11/16 21:30 Expected date of discharge: 08/15/16 Attending physician: Yakov Kebede Consults: 08/12/16 08:23 Consult Physician Urgent Consulting Provider: Paco Fofana Consult Reason/Comments: Pulmonary management Do you want consulting provider notified?: Yes 08/15/16 11:49 Consult Physician Stat Consulting Provider: Jay Smith Consult Reason/Comments: hand tremors Do you want consulting provider notified?: Yes Primary care physician: [facility] Course: 50-year-old female presented on the day of admission to the emergency room with a chief complaint of frequent nonproductive cough with developing shortness of breath felt like "the flu with flulike symptoms. Patient stated that she had just not been feeling well for at least 4 days[address] Did go to Dr. Kebede office last and was given a prescription for antibiotics and steroids. Patient stated that she did not feel any better after starting the treatment. Patient states that she was coughing up yellowish secretions on and off. Patient states that she does have a history of COPD however she lost her machine and was not taking breathing treatments patient was seen in the emergency room influenza type B was positive. Chest x-ray in the emergency room showed some basilar atelectasis difficult to exclude early airspace disease. Given the above clinical presentation the patient was admitted to the services of the attending. Patient was seen by pulmonology team. She is complaining of new tremors and neurology evaluation is requested. Patient Condition at Discharge: Good Plan - Discharge Summary New Discharge Prescriptions: Azithromycin [Zithromax Tri-[place]] 500 mg PO DAILY #5 tab Benzonatate [Tessalon Perles] 100 mg PO TID #60 cap Docusate [Colace] 100 mg PO DAILY #30 capsule predniSONE 10 mg PO DAILY #20 tab Discharge Medication List ALPRAZolam [Xanax] 0.5 mg PO TID PRN 03/02/14 [History] Butalb/Acetaminophen/Caffeine [Fioricet 50-325-40 mg Tablet] 1 tab PO QID PRN [History] Dicyclomine [Bentyl] 20 mg PO QID 03/02/14 [History] Hydrocodone/Acetaminophen [[place] 10-325] 1 tab PO TID 03/02/14 [History] Montelukast [Singulair] 10 mg PO HS 03/02/14 [History] lamoTRIgine [LaMICtal] 200 mg PO BID 03/02/14 [History] Aspirin EC [Ecotrin Low Dose] 81 mg PO HS 06/04/16 [History] Atenolol [Tenormin] 25 mg PO BID 06/04/16 [History] Desvenlafaxine Succinate [Pristiq] 100 mg PO DAILY 06/04/16 [History] Estrogens, Conjugated [Premarin] 0.9 mg PO DAILY 06/04/16 [History] Gabapentin 600 mg PO TID 06/04/16 [History] Ondansetron [Zofran] 4 mg PO Q8HR PRN #15 tab 06/04/16 [Rx] Omeprazole [PriLOSEC] 40 mg PO DAILY 08/11/16 [History] Azithromycin [Zithromax Tri-[place]] 500 mg PO DAILY #5 tab 08/15/16 [Rx] Benzonatate [Tessalon Perles] 100 mg PO TID #60 cap 08/15/16 [Rx] Docusate [Colace] 100 mg PO DAILY #30 capsule 08/15/16 [Rx] predniSONE 10 mg PO DAILY #20 tab 08/15/16 [Rx] Follow up Appointment(s)/Referral(s): Yakov Kebede MD [Primary Care Provider] - 1 Week Paco Fofana DO [Doctor of Osteopathic Medicine] - 1 Week Patient Instructions/Handouts: Influenza (DC) Activity/Diet/Wound Care/Special Instructions: Cardiac diet. Discharge Disposition: HOME SELF-CARE
== END 2016-08-15 15:12 | disposition home or self-care (01) | DRG 194 ==
LOC: EC 17:25 → 4MS4W 21:30
PROVIDERS: ADMIT Family Medicine; ATTEND Family Medicine
DX: J10.1 Influenza due to other identified influenza virus with other respiratory manifestations (principal); J44.1 Chronic obstructive pulmonary disease with (acute) exacerbation; B36.0 Pityriasis versicolor; E86.0 Dehydration; F32.9 Major depressive disorder, single episode, unspecified; J98.11 Atelectasis; F41.9 Anxiety disorder, unspecified; K21.9 Gastro-esophageal reflux disease without esophagitis; M79.7 Fibromyalgia; Z78.9 Other specified health status; Z82.49 Family history of ischemic heart disease and other diseases of the circulatory system; Z82.5 Family history of asthma and other chronic lower respiratory diseases; Z79.899 Other long term (current) drug therapy; Z88.1 Allergy status to other antibiotic agents; Z88.5 Allergy status to narcotic agent; Z87.891 Personal history of nicotine dependence
CPT/HCPCS: 36415; 71020; 80053; 81003; 83036; 85025; 87081; 87086; 87430; 87502; 94640; 94644; 96375; 99284

== ENCOUNTER → 2016-11-02 | Outpatient (CLI) | payer MEDICARE, OTHER ==
--- NOTE | 2016-11-02 19:27 | XR ---
EXAMINATION TYPE: XR foot complete RT DATE OF EXAM: 11/02/2016 7:16 PM COMPARISON: NONE HISTORY: Foot pain TECHNIQUE: 3 views FINDINGS: I see no fracture nor dislocation. Metatarsals are intact. There are no erosions. IMPRESSION: Negative right foot exam.
== END | disposition home or self-care (01) ==
LOC: RADXRMAIN 19:00
PROVIDERS: ATTEND Family Medicine
DX: M79.671 Pain in right foot (principal)

== ENCOUNTER 2016-11-26 18:34 | Emergency (ER) | payer MEDICARE, OTHER ==
[2016-11-26 18:49] VITALS: BP 101/65; PULSE 60; RESP 18; TEMP 97.6
--- NOTE | 2016-11-26 19:01 | ED ---
Fall HPI - General Chief Complaint: Fall Stated Complaint: FALL ON CEMENT, LEGS NUMB AND TINGLING Time Seen by Provider: 11/26/16 18:50 Source: patient, RN notes reviewed Mode of arrival: ambulatory Limitations: no limitations - History of Present Illness Initial Comments: 50-year-old female presents emergency Department chief complaint fall. Patient states she tripped over a curb and injured her back. Patient complaint of mid to low back pain. Has complains of some numbness to her upper legs denies any bowel bladder and concert retention. Denies abdominal pain. Patient states she bumped her head but has no headache no LOC. Denies any dizziness, blurred vision or any focal weakness. She denies any any upper extremity injury - Related Data Home Medications Medication Instructions Recorded Confirmed ALPRAZolam [Xanax] 0.5 mg PO TID PRN 03/02/14 08/11/16 Butalb/Acetaminophen/Caffeine 1 tab PO QID PRN 03/02/14 08/11/16 [Fioricet 50-325-40 mg Tablet] Dicyclomine [Bentyl] 20 mg PO QID 03/02/14 08/11/16 Hydrocodone/Acetaminophen [[place] 1 tab PO TID 03/02/14 08/11/16 10-325] Montelukast [Singulair] 10 mg PO HS 03/02/14 08/11/16 lamoTRIgine [LaMICtal] 200 mg PO BID 03/02/14 08/11/16 Aspirin EC [Ecotrin Low Dose] 81 mg PO HS 06/04/16 08/11/16 Atenolol [Tenormin] 25 mg PO BID 06/04/16 08/11/16 Desvenlafaxine Succinate [Pristiq] 100 mg PO DAILY 06/04/16 08/11/16 Estrogens, Conjugated [Premarin] 0.9 mg PO DAILY 06/04/16 08/11/16 Gabapentin 600 mg PO TID 06/04/16 08/11/16 Omeprazole [PriLOSEC] 40 mg PO DAILY 08/11/16 08/11/16 Previous Rx's Medication Instructions Recorded Ondansetron [Zofran] 4 mg PO Q8HR PRN #15 tab 06/04/16 Azithromycin [Zithromax [place]] 500 mg PO DAILY #5 tab 08/15/16 Benzonatate [Tessalon Perles] 100 mg PO TID #60 cap 08/15/16 Docusate [Colace] 100 mg PO DAILY #30 capsule 08/15/16 predniSONE 10 mg PO DAILY #20 tab 08/15/16 Allergies Allergy/AdvReac Type Severity Reaction Status Date / Time clindamycin Allergy Anaphylaxis Verified 11/26/16 18:49 divalproex sodium Allergy Rash/Hives Verified 11/26/16 18:49 [From Depakote] moxifloxacin [From Avelox] Allergy Unknown Verified 11/26/16 18:49 topiramate [From Topamax] Allergy Unknown Verified 11/26/16 18:49 zolmitriptan [From Zomig] Allergy Unknown Verified 11/26/16 18:49 acetaminophen [From Percocet] AdvReac Nausea Verified 11/26/16 18:49 oxycodone [From Percocet] AdvReac Nausea Verified 11/26/16 18:49 Review of Systems ROS Statement: Those systems with pertinent positive or pertinent negative responses have been documented in the HPI. ROS Other: All systems not noted in ROS Statement are negative. Past Medical History Past Medical History: COPD, Fibromyalgia, GERD/Reflux Additional Past Medical History / Comment(s): HERNIATED DISC, HEADACHES History of Any Multi-Drug Resistant Organisms: None Reported Past Surgical History: Ear Surgery, Hysterectomy Additional Past Surgical History / Comment(s): NASAL SURGERY; LUNG SURGERY - LOBECTOMY Past Anesthesia/Blood Transfusion Reactions: No Reported Reaction Past Psychological History: Anxiety, Depression Smoking Status: Former smoker Past Alcohol Use History: None Reported Past Drug Use History: None Reported - Past Family History Father Additional Family Medical History / Comment(s): kidney Transplant Brother(s) Additional Family Medical History / Comment(s): diverticulitis, bowel resection and colostomy Mother Family Medical History: AFIB, COPD, Fibromyalgia, Hypertension, Mitral Valve Prolapse (MVP), Osteoarthritis (OA), Thyroid Disorder General Exam Limitations: no limitations General appearance: alert, in no apparent distress Head exam: Present: atraumatic, normocephalic, normal inspection Neck exam: Present: normal inspection, full ROM. Absent: tenderness, meningismus, lymphadenopathy Respiratory exam: Present: normal lung sounds bilaterally. Absent: respiratory distress, wheezes, rales, rhonchi, stridor Cardiovascular Exam: Present: regular rate, normal rhythm, normal heart sounds. Absent: systolic murmur, diastolic murmur, rubs, gallop, clicks GI/Abdominal exam: Present: soft, normal bowel sounds. Absent: distended, tenderness, guarding, rebound, rigid Extremities exam: Present: normal inspection, full ROM, normal capillary refill , other (Full strength and equal bilaterally lower extremity neurovascular intact equal: Equal warmth). Absent: tenderness, pedal edema, joint swelling, calf tenderness Back exam: Present: normal inspection, full ROM, tenderness (Mild tenderness of the mid to lower thoracic, lumbar region), paraspinal tenderness. Absent: CVA tenderness (R), CVA tenderness (L), vertebral tenderness Neurological exam: Present: alert, oriented X3, CN II-XII intact, reflexes normal. Absent: motor sensory deficit Skin exam: Present: warm, dry, intact, normal color. Absent: rash Course Vital Signs 11/26/16 18:46 Temperature 97.6 F Pulse Rate 60 Respiratory 18 Rate Blood Pressure 101/65 O2 Sat by Pulse 96 Oximetry Medical Decision Making - Medical Decision Making 53-year-old female presented for fall. There is no acute fractures. Patient we discharged at this time follow-up with primary care physician. Disposition Clinical Impression: Fall, Back pain Disposition: HOME SELF-CARE Condition: Stable Instructions: Back Pain (ED) Additional Instructions: Please return to the Emergency Department if symptoms worsen or any other concerns. Referrals: Yakov Kebede MD [Primary Care Provider] - 1-2 days Time of Disposition: 20:10
--- NOTE | 2016-11-26 20:03 | XR ---
EXAMINATION TYPE: XR thoracic spine 2V DATE OF EXAM: 11/26/2016 COMPARISON: NONE HISTORY: Generalized upper back pain after fall TECHNIQUE: 2 views of the thoracic spine were obtained FINDINGS: Osseous mineralization is within normal limits. Vertebral bodies maintain normal alignment and vertebral body height. No evidence of acute fracture or dislocation. Visualized portions of the l ungs are clear. IMPRESSION: No evidence of fracture or dislocation.
--- NOTE | 2016-11-26 20:04 | XR ---
EXAMINATION TYPE: XR lumbar spine 2 or 3V DATE OF EXAM: 11/26/2016 COMPARISON: NONE HISTORY: Generalized back pain after fall TECHNIQUE: 2 views of the lumbar spine were obtained. FINDINGS: There is no evidence of acute fracture or dislocation. Vertebral bodies maintain normal hei ght and alignment. Degenerative changes are appreciated of the lumbosacral junction and to a lesser d egree at the sacroiliac joints. No abnormal calcifications are seen within the visualized pelvis. IMPRESSION: No evidence of fracture or dislocation. Mild degenerative changes.
== END 2016-11-26 20:13 | disposition home or self-care (01) ==
LOC: EC 18:34
DX: M54.5 Low back pain (principal); R20.0 Anesthesia of skin; K21.9 Gastro-esophageal reflux disease without esophagitis; M79.7 Fibromyalgia; F32.9 Major depressive disorder, single episode, unspecified; Z87.891 Personal history of nicotine dependence; Z79.82 Long term (current) use of aspirin; Z79.891 Long term (current) use of opiate analgesic; Z79.899 Other long term (current) drug therapy; Z88.1 Allergy status to other antibiotic agents; Z88.5 Allergy status to narcotic agent; Z88.8 Allergy status to other drugs, medicaments and biological substances; Z87.39 Personal history of other diseases of the musculoskeletal system and connective tissue; W18.09XA Striking against other object with subsequent fall, initial encounter
CPT/HCPCS: 72070; 72100; 99283

== ENCOUNTER → 2017-03-09 | Outpatient (CLI) | payer MEDICARE, OTHER ==
--- NOTE | 2017-03-10 07:21 | XR ---
EXAMINATION TYPE: XR lumbar spine 2 or 3V DATE OF EXAM: 03/09/2017 CLINICAL HISTORY: pain TECHNIQUE: Three views of the lumbar spine are submitted. COMPARISON: 11/26/2016 FINDINGS: There are 5 lumbar type vertebral bodies identified. The lumbar spine shows satisfactory alignment w ithout evidence of acute fracture or dislocation. Vertebral body heights are within normal limits. Mild scattered degenerative disc space narrowing and minimal spondylosis. Mild facet joint arthropath y. The overlying soft tissue appears unremarkable. IMPRESSION: No acute fracture or dislocation is seen in the lumbar spine. ICD 10 NO FRACTURE, INITIAL EVALUATION
--- NOTE | 2017-03-10 09:07 | XR ---
EXAMINATION TYPE: XR finger LT DATE OF EXAM: 03/09/2017 CLINICAL HISTORY: pain Left fifth digit. TECHNIQUE: 3 views of the left fifth digit are submitted. COMPARISON: 01/11/2017 FINDINGS: No displaced fracture is seen with certainty. Joint spaces are well-preserved. Correlate for soft tissue injury. IMPRESSION: No acute displaced fracture or dislocation.
== END | disposition home or self-care (01) ==
LOC: RADXRMAIN 15:46
PROVIDERS: ATTEND Family Medicine
DX: M54.5 Low back pain (principal); M79.645 Pain in left finger(s)
CPT/HCPCS: 72100

== ENCOUNTER 2017-04-01 11:37 | Emergency (ER) | payer MEDICARE, OTHER ==
[2017-04-01] MEDS ORDERED: IBUPROFEN 600 MG TAB PO STA (12:29)
[2017-04-01] MEDS ORDERED: HYDROmorphone 2 MG/ML 1 ML SYRINGE IM STA (12:29)
[2017-04-01] MEDS ORDERED: PROCHLORPERAZINE 10 MG TAB PO STA (12:29)
[2017-04-01] MEDS ORDERED: diphenhydrAMINE 50 MG CAP PO STA (12:29)
--- NOTE | 2017-04-01 13:08 | ED ---
General Adult HPI - General Chief complaint: Headache Stated complaint: migraine left side head and neck Time Seen by Provider: 04/01/17 11:52 Source: patient, RN notes reviewed, old records reviewed Mode of arrival: ambulatory Limitations: no limitations - History of Present Illness Initial comments: This is a 51-year-old female ER for evaluation of headache. Patient does have severe headache. Patient states she is nausea. History of chronic migraines and this is just like her prior migraines, she has been in the emergency department before for headache and this is no different. Patient states that at 4 days. There is photophobia there is phonophobia, patient secondary nausea and I will take some of her headache medications. Patient states no real medications that she has taken in the past have not work for control of her chronic migraines history - Related Data Home Medications Medication Instructions Recorded Confirmed ALPRAZolam [Xanax] 0.5 mg PO TID PRN 03/02/14 04/01/17 Dicyclomine [Bentyl] 20 mg PO QID 03/02/14 04/01/17 Hydrocodone/Acetaminophen [[place] 1 tab PO QID 03/02/14 04/01/17 10-325] Montelukast [Singulair] 10 mg PO HS 03/02/14 04/01/17 lamoTRIgine [LaMICtal] 200 mg PO BID 03/02/14 04/01/17 Aspirin EC [Ecotrin Low Dose] 81 mg PO HS 06/04/16 04/01/17 Atenolol [Tenormin] 25 mg PO BID 06/04/16 04/01/17 Desvenlafaxine Succinate [Pristiq] 100 mg PO DAILY 06/04/16 04/01/17 Estrogens, Conjugated [Premarin] 0.9 mg PO DAILY 06/04/16 04/01/17 Gabapentin 600 mg PO TID 06/04/16 04/01/17 Omeprazole [PriLOSEC] 40 mg PO DAILY 08/11/16 04/01/17 Allergies Allergy/AdvReac Type Severity Reaction Status Date / Time clindamycin Allergy Anaphylaxis Verified 04/01/17 12:02 divalproex sodium Allergy Rash/Hives Verified 04/01/17 12:02 [From Depakote] moxifloxacin [From Avelox] Allergy Unknown Verified 04/01/17 12:02 topiramate [From Topamax] Allergy Unknown Verified 04/01/17 12:02 zolmitriptan [From Zomig] Allergy Unknown Verified 04/01/17 12:02 oxycodone [From Percocet] AdvReac Nausea Verified 04/01/17 12:02 Review of Systems ROS Statement: Those systems with pertinent positive or pertinent negative responses have been documented in the HPI. ROS Other: All systems not noted in ROS Statement are negative. Past Medical History Past Medical History: COPD, Fibromyalgia, GERD/Reflux Additional Past Medical History / Comment(s): HERNIATED DISC, HEADACHES History of Any Multi-Drug Resistant Organisms: None Reported Past Surgical History: Ear Surgery, Hysterectomy Additional Past Surgical History / Comment(s): NASAL SURGERY; LUNG SURGERY - LOBECTOMY Past Anesthesia/Blood Transfusion Reactions: No Reported Reaction Past Psychological History: Anxiety, Depression Smoking Status: Former smoker Past Alcohol Use History: None Reported Past Drug Use History: None Reported - Past Family History Father Additional Family Medical History / Comment(s): kidney Transplant Brother(s) Additional Family Medical History / Comment(s): diverticulitis, bowel resection and colostomy Mother Family Medical History: AFIB, COPD, Fibromyalgia, Hypertension, Mitral Valve Prolapse (MVP), Osteoarthritis (OA), Thyroid Disorder General Exam Limitations: no limitations General appearance: alert, in no apparent distress Head exam: Present: atraumatic, normocephalic, normal inspection Eye exam: Present: normal appearance, PERRL, EOMI. Absent: scleral icterus, conjunctival injection, periorbital swelling ENT exam: Present: normal exam, mucous membranes moist Neck exam: Present: normal inspection. Absent: tenderness, meningismus, lymphadenopathy Respiratory exam: Present: normal lung sounds bilaterally. Absent: respiratory distress, wheezes, rales, rhonchi, stridor Cardiovascular Exam: Present: regular rate, normal rhythm, normal heart sounds. Absent: systolic murmur, diastolic murmur, rubs, gallop, clicks GI/Abdominal exam: Present: soft, normal bowel sounds. Absent: distended, tenderness, guarding, rebound, rigid Extremities exam: Present: normal inspection, full ROM, normal capillary refill. Absent: tenderness, pedal edema, joint swelling, calf tenderness Back exam: Present: normal inspection Neurological exam: Present: alert, oriented X3, CN II-XII intact Psychiatric exam: Present: normal affect, normal mood Skin exam: Present: warm, dry, intact, normal color. Absent: rash Course Vital Signs 04/01/17 11:40 Temperature 97.8 F Pulse Rate 61 Respiratory 18 Rate Blood Pressure 106/63 O2 Sat by Pulse 97 Oximetry - Reevaluation(s) Reevaluation #1: 04/01/17 13:08 Patient is adequate headache control at this time, no neurological deficit noted Medical Decision Making - Medical Decision Making 51 female to the ER with severe headache. History of her chronic migraine. At this point headaches resolve the patient will be discharged home Disposition Clinical Impression: Migraine, Chronic migraine, Headache Disposition: HOME SELF-CARE Condition: Good Instructions: Acute Headache (ED) Referrals: Yakov Kebede MD [Primary Care Provider] - 1-2 days
[2017-04-01 13:44] VITALS: BP 87/53; PULSE 66; RESP 16; TEMP 97.9
== END 2017-04-01 13:44 | disposition home or self-care (01) ==
LOC: EC 11:37
DX: G43.909 Migraine, unspecified, not intractable, without status migrainosus (principal); K21.9 Gastro-esophageal reflux disease without esophagitis; F41.9 Anxiety disorder, unspecified; F32.9 Major depressive disorder, single episode, unspecified; Z79.82 Long term (current) use of aspirin; Z79.899 Other long term (current) drug therapy; Z79.890 Hormone replacement therapy; Z87.891 Personal history of nicotine dependence
CPT/HCPCS: 99283 ×2; 96372 ×2; S0183; J1170

== ENCOUNTER 2017-08-14 18:30 | Emergency (ER) | payer MEDICARE, OTHER ==
[2017-08-14 18:55] VITALS: RESP 16
[2017-08-14] MEDS ORDERED: SODIUM CHLORIDE 0.9% 1,000 ML IV STA (19:26)
[2017-08-14] MEDS ORDERED: ORPHENADRINE 30 MG/ML 2 ML VIAL IM STA (19:26)
[2017-08-14] MEDS ORDERED: METOCLOPRAMIDE 5 MG/ML 2 ML VIAL IVP STA (19:26)
[2017-08-14] MEDS ORDERED: diphenhydrAMINE 50 MG/ML 1 ML VIAL IVP STA (19:26)
--- NOTE | 2017-08-14 19:29 | ED ---
General Adult HPI - General Chief complaint: Headache Stated complaint: headache x 3 days, neck pain Time Seen by Provider: 08/14/17 19:20 Source: patient, RN notes reviewed Mode of arrival: ambulatory Limitations: no limitations - History of Present Illness Initial comments: 51-year-old female presents emergency department with a chief complaint of headache. She states that she has a history of headaches states she's had a frontal headache is much like her normal headaches. She states she's also had this for lower neck pain. It radiates up and she is to her head. She states she's had some fullness in her ears. She states she is has not had any fever or chills. She states the pain is Bad enough that she has felt nauseous. She states that there has been no other symptoms. The patient denies any fever or chills. Patient denies any recent fever, shortness of breath, chest pain, back pain, abdominal pain, nausea vomiting, numbness or tingling, dysuria or hematuria, constipation or diarrhea, visual changes, or any other current symptoms. - Related Data Home Medications Medication Instructions Recorded Confirmed ALPRAZolam [Xanax] 0.5 mg PO TID PRN 03/02/14 08/14/17 Dicyclomine [Bentyl] 20 mg PO QID 03/02/14 08/14/17 Hydrocodone/Acetaminophen [[place] 1 tab PO QID PRN 03/02/14 08/14/17 10-325] Montelukast [Singulair] 10 mg PO HS 03/02/14 08/14/17 lamoTRIgine [LaMICtal] 200 mg PO BID 03/02/14 08/14/17 Aspirin EC [Ecotrin Low Dose] 81 mg PO HS 06/04/16 08/14/17 Atenolol [Tenormin] 25 mg PO BID 06/04/16 08/14/17 Desvenlafaxine Succinate [Pristiq] 100 mg PO DAILY 06/04/16 08/14/17 Estrogens, Conjugated [Premarin] 0.9 mg PO DAILY 06/04/16 08/14/17 Pantoprazole Sodium [Protonix] 40 mg PO DAILY 08/14/17 08/14/17 Allergies Allergy/AdvReac Type Severity Reaction Status Date / Time clindamycin Allergy Anaphylaxis Verified 08/14/17 19:55 divalproex sodium Allergy Rash/Hives Verified 08/14/17 19:55 [From Depakote] moxifloxacin [From Avelox] Allergy Unknown Verified 08/14/17 19:55 topiramate [From Topamax] Allergy Unknown Verified 08/14/17 19:55 zolmitriptan [From Zomig] Allergy Unknown Verified 08/14/17 19:55 oxycodone [From Percocet] AdvReac Nausea Verified 08/14/17 19:55 Review of Systems ROS Statement: Those systems with pertinent positive or pertinent negative responses have been documented in the HPI. ROS Other: All systems not noted in ROS Statement are negative. Past Medical History Past Medical History: COPD, Fibromyalgia, GERD/Reflux Additional Past Medical History / Comment(s): HERNIATED DISC, HEADACHES History of Any Multi-Drug Resistant Organisms: None Reported Past Surgical History: Ear Surgery, Hysterectomy Additional Past Surgical History / Comment(s): NASAL SURGERY; LUNG SURGERY - LOBECTOMY Past Anesthesia/Blood Transfusion Reactions: No Reported Reaction Past Psychological History: Anxiety, Depression Smoking Status: Former smoker Past Alcohol Use History: None Reported Past Drug Use History: None Reported - Past Family History Father Additional Family Medical History / Comment(s): kidney Transplant Brother(s) Additional Family Medical History / Comment(s): diverticulitis, bowel resection and colostomy Mother Family Medical History: AFIB, COPD, Fibromyalgia, Hypertension, Mitral Valve Prolapse (MVP), Osteoarthritis (OA), Thyroid Disorder General Exam - General Exam Comments Initial Comments: General: The patient is awake and alert, in no distress, and does not appear acutely ill. Eye: Pupils are equal, round and reactive to light, extra-ocular movements are intact; there is normal conjunctiva bilaterally. No signs of icterus. Ears, nose, mouth and throat: There are moist mucous membranes. Neck: The neck is supple, there is no tenderness. Cardiovascular: There is a regular rate and rhythm. No murmur, rub or gallop is appreciated. Respiratory: Lungs are clear to auscultation, respirations are non-labored, breath sounds are equal. No wheezes, stridor, rales, or rhonchi. Gastrointestinal: Soft, non-distended, non-tender abdomen without masses or organomegaly noted. There is no rebound or guarding present. No CVA tenderness. Bowel sounds are unremarkable. Back: There is no tenderness to palpation in the midline. There is no obvious deformity. No rashes noted. Musculoskeletal: Normal ROM, no tenderness, There is no pedal edema. There is no calf tenderness or swelling. Sensation intact. Pulses equal bilaterally 2+. Neurological: CN II-XII intact, There are no obvious motor or sensory deficits. Coordination appears grossly intact. Speech is normal. Skin: Skin is warm and dry and no rashes or lesions are noted. Psychiatric: Cooperative, appropriate mood & affect, normal judgment. Limitations: no limitations Course Vital Signs 08/14/17 18:53 Temperature 97.6 F Pulse Rate 61 Respiratory 16 Rate Blood Pressure 91/51 O2 Sat by Pulse 97 Oximetry Medical Decision Making - Medical Decision Making 51-year-old female presents to the emergency department with a chief complaint of headache. At this time patient's CAT scan has been reviewed. Patient is feeling better in the room. At this time we did discuss continued custodial. We discussed return parameters and follow-up and all questions. They stated her neck discomfort is mostly between to the degeneration. We discussion stop with her doctor for this. She patient is in agreement this plan. All questions have been answered. This time she'll be discharged. - Lab Data Result diagrams: 08/14/17 19:42 08/14/17 19:42 Lab Results 08/14/17 08/14/17 Range/Units 19:42 19:42 WBC 8.7 (3.8-10.6) k/uL RBC 4.41 (3.80-5.40) m/uL Hgb 13.1 (11.4-16.0) gm/dL Hct 40.8 (34.0-46.0) % MCV 92.5 (80.0-100.0) fL MCH 29.8 (25.0-35.0) pg MCHC 32.2 (31.0-37.0) g/dL RDW 13.3 (11.5-15.5) % Plt Count 295 (150-450) k/uL Neutrophils % 61 % Lymphocytes % 30 % Monocytes % 5 % Eosinophils % 1 % Basophils % 1 % Neutrophils # 5.4 (1.3-7.7) k/uL Lymphocytes # 2.6 (1.0-4.8) k/uL Monocytes # 0.4 (0-1.0) k/uL Eosinophils # 0.1 (0-0.7) k/uL Basophils # 0.1 (0-0.2) k/uL Sodium 142 (137-145) mmol/L Potassium 4.2 (3.5-5.1) mmol/L Chloride 105 (98-107) mmol/L Carbon Dioxide 28 (22-30) mmol/L Anion Gap 9 mmol/L BUN 14 (7-17) mg/dL Creatinine 0.70 (0.52-1.04) mg/dL Est GFR (MDRD) Af Amer >60 (>60 ml/min/1.73 sqM) Est GFR (MDRD) Non-Af >60 (>60 ml/min/1.73 sqM) Glucose 95 (74-99) mg/dL Calcium 9.5 (8.4-10.2) mg/dL Total Bilirubin 0.2 (0.2-1.3) mg/dL AST 25 (14-36) U/L ALT 26 (9-52) U/L Alkaline Phosphatase 89 (38-126) U/L Total Protein 7.0 (6.3-8.2) g/dL Albumin 3.9 (3.5-5.0) g/dL - Radiology Data Radiology results: report reviewed, image reviewed Disposition Clinical Impression: Headache, Degeneration, intervertebral disc, cervical Disposition: HOME SELF-CARE Condition: Stable Instructions: General Headache (ED) Additional Instructions: Please use medication as discussed. Please follow up with family doctor if symptoms have not improved over the next two days. Please return to the emergency room if your symptoms increase or worsen or for any other concerns. Referrals: Yakov Kebede MD [Primary Care Provider] - 1-2 days Time of Disposition: 20:25
[2017-08-14 20:05] LABS: Basophils # (A) 0.1 k/uL (0-0.2); Basophils % (A) 1 %; Eosinophils # (A) 0.1 k/uL (0-0.7); Eosinophils % (A) 1 %; HCT 40.8 % (34.0-46.0); HGB 13.1 gm/dL (11.4-16.0); Lymphocytes # (A) 2.6 k/uL (1.0-4.8); Lymphocytes % (A) 30 %; MCH 29.8 pg (25.0-35.0); MCHC 32.2 g/dL (31.0-37.0); MCV 92.5 fL (80.0-100.0); Mean Platelet Volume 7.5; Monocytes # (A) 0.4 k/uL (0-1.0); Monocytes % (A) 5 %; Neutrophils # (A) 5.4 k/uL (1.3-7.7); Neutrophils % (A) 61 %; Platelet Count 295 k/uL (150-450); RBC 4.41 m/uL (3.80-5.40); RDW 13.3 % (11.5-15.5); WBC 8.7 k/uL (3.8-10.6)
[2017-08-14 20:14] LABS: ALT 26 U/L (9-52); AST 25 U/L (14-36); Albumin 3.9 g/dL (3.5-5.0); Alkaline Phosphatase 89 U/L (38-126); Anion Gap 9 mmol/L; Blood Urea Nitrogen 14 mg/dL (7-17); Calcium 9.5 mg/dL (8.4-10.2); Carbon Dioxide 28 mmol/L (22-30); Chloride 105 mmol/L (98-107); Glucose 95 mg/dL (74-99); Potassium 4.2 mmol/L (3.5-5.1); Sodium 142 mmol/L (137-145); Total Bilirubin 0.2 mg/dL (0.2-1.3)
--- NOTE | 2017-08-14 20:16 | CT ---
EXAMINATION TYPE: CT brain samson wo con DATE OF EXAM: 08/14/2017 COMPARISON: 08/24/2015 and 11/26/2015 HISTORY: 51-year-old female with headache and neck pain x3 days. CT DLP: 1299 mGycm Automated exposure control for dose reduction was used. Technique: Examination of the head was done in axial plane without intravenous contrast. Coronal and sagittal reconstructions performed. CT of the cervical spine was obtained in axial plane without intravenous injection of contrast mater ial. Coronal and sagittal reformatted images were obtained from the axial views for evaluation of f ractures, spinal alignment and canal. FINDINGS: Head: There is no evidence of acute intracranial hemorrhage, acute ischemic changes, mass, mass-effect, or extra-axial fluid collection. There is no effacement of cerebral sulci or basal subarachnoid cister ns. There is no hydrocephalus. There is no midline shift. Strong-white matter distinction is preserv ed. Paranasal sinuses and mastoid air cells are well pneumatized. Orbits and globes are intact. Leftward nasal septal deviation incidentally noted. Cervical spine: The alignment of the cervical spine is normal on coronal and reformatted images. There is no cranial vertebral abnormality. Fracture of the cervical spine is not seen. Facet arthropathy lower cervical s pine. Minimal bulging discs mid cervical spine. Assessment of the spinal canal at C6-C7 and below is limited due to artifact from the patient's shoulders. No evident canal compromise. Sagittal and coronal reformatted images confirm above findings. COMBINED IMPRESSION: 1. No acute intracranial abnormality seen. 2. No acute fracture or malalignment of the cervical spine. Mild degenerative changes in the lower ce rvical spine.
[2017-08-14] MEDS ORDERED: KETOROLAC 30 MG/ML 1 ML VIAL IVP STA (20:38)
[2017-08-14] MEDS ORDERED: methylPREDNISolone SOD SUCCI 125 MG/2 ML VIAL IV STA (21:46)
[2017-08-14 22:53] VITALS: BP 101/51; PULSE 62; TEMP 97.5
== END 2017-08-14 22:53 | disposition home or self-care (01) ==
LOC: EC 18:30
DX: M50.30 Other cervical disc degeneration, unspecified cervical region (principal); R51 Headache; J45.909 Unspecified asthma, uncomplicated; F32.9 Major depressive disorder, single episode, unspecified; F41.9 Anxiety disorder, unspecified; Z87.891 Personal history of nicotine dependence; Z79.82 Long term (current) use of aspirin; Z79.899 Other long term (current) drug therapy; Z88.1 Allergy status to other antibiotic agents; Z88.8 Allergy status to other drugs, medicaments and biological substances
CPT/HCPCS: 36415; 80053; 85025; 72125; 70450; 99284; 96374; 96375 ×3; 96361; 96372; J1200; J2360; J2765; J2930; J1885

== ENCOUNTER → 2017-10-18 | Outpatient (CLI) | payer MEDICARE, OTHER ==
--- NOTE | 2017-10-19 13:34 | MM ---
Reason for exam: screening (asymptomatic). Last mammogram was performed 2 years and 2 months ago. History: Family history of breast cancer in maternal aunt and breast cancer in maternal cousin. Benign left mammotome panel of the left breast, March 30, 2008. Taking estrogen for 10 years beginning at age 33. Physical Findings: A clinical breast exam by your physician is recommended on an annual basis and results should be correlated with mammographic findings. MG 3D Screening Mammo W/Cad Bilateral CC and MLO view(s) were taken. Prior study comparison: August 15, 2015, bilateral MG 3d screening mammo w/cad. May 04, 2014, bilateral MG screening mammo w CAD. The breast tissue is heterogeneously dense. This may lower the sensitivity of mammography. Previous mammotome biopsy in the left breast x 2. There is no discrete abnormality. ASSESSMENT: Benign, BI-RAD 2 RECOMMENDATION: Routine screening mammogram of both breasts in 1 year.
== END | disposition home or self-care (01) ==
LOC: RADMAMWWP 15:08
PROVIDERS: ATTEND Family Medicine
DX: Z12.31 Encounter for screening mammogram for malignant neoplasm of breast (principal)
CPT/HCPCS: 77063; 77067

== ENCOUNTER 2018-03-09 22:42 | Emergency (ER) | payer MEDICARE, OTHER ==
--- NOTE | 2018-03-09 23:35 | ED ---
Extremity Problem HPI - General Chief complaint: Extremity Problem,Nontraumatic Stated complaint: Lt Leg Pain Time Seen by Provider: 03/09/18 22:52 Source: patient, RN notes reviewed, old records reviewed Mode of arrival: ambulatory Limitations: no limitations - History of Present Illness Initial comments: Patient is a 52 year old female with CC of left leg pain today. She reports pain in upper leg above the anterior knee, and pain radiatinb from posterior knee to wei. She reports no trauma. She reports occasional numbness to lower foot. She denies any other complaints. - Related Data Home Medications Medication Instructions Recorded Confirmed ALPRAZolam [Xanax] 0.5 mg PO HS PRN 03/02/14 03/09/18 Dicyclomine [Bentyl] 20 mg PO QID 03/02/14 03/09/18 Hydrocodone/Acetaminophen [[place] 1 tab PO QID PRN 03/02/14 03/09/18 10-325] Montelukast [Singulair] 10 mg PO HS 03/02/14 03/09/18 lamoTRIgine [LaMICtal] 100 mg PO BID 03/02/14 03/09/18 Atenolol [Tenormin] 25 mg PO BID 06/04/16 03/09/18 Pantoprazole Sodium [Protonix] 40 mg PO DAILY 08/14/17 03/09/18 Albuterol Inhaler [Ventolin Hfa 1 - 2 puff INHALATION RT-Q6H PRN 03/09/18 Inhaler] Desvenlafaxine Succinate [Pristiq 75 mg PO DAILY 03/09/18 03/09/18 ER] Ergocalciferol (Vitamin D2) 50,000 unit PO TH 03/09/18 03/09/18 [Vitamin D2] Gabapentin [Neurontin] 600 mg PO BID 03/09/18 03/09/18 Multivitamins, Thera [Multivitamin 1 tab PO DAILY 03/09/18 03/09/18 (formulary)] Previous Rx's Medication Instructions Recorded Ibuprofen 600 mg PO TID #20 tablet 03/10/18 Allergies Allergy/AdvReac Type Severity Reaction Status Date / Time clindamycin Allergy Anaphylaxis Verified 03/09/18 22:59 divalproex sodium Allergy Rash/Hives Verified 03/09/18 22:59 [From Depakote] moxifloxacin [From Avelox] Allergy Unknown Verified 03/09/18 22:59 topiramate [From Topamax] Allergy Unknown Verified 03/09/18 22:59 zolmitriptan [From Zomig] Allergy Unknown Verified 03/09/18 22:59 oxycodone [From Percocet] AdvReac Nausea Verified 03/09/18 22:59 Review of Systems ROS Statement: Those systems with pertinent positive or pertinent negative responses have been documented in the HPI. ROS Other: All systems not noted in ROS Statement are negative. Past Medical History Past Medical History: COPD, Fibromyalgia, GERD/Reflux Additional Past Medical History / Comment(s): HERNIATED DISC, HEADACHES History of Any Multi-Drug Resistant Organisms: None Reported Past Surgical History: Ear Surgery, Hysterectomy Additional Past Surgical History / Comment(s): NASAL SURGERY; LUNG SURGERY - LOBECTOMY Past Anesthesia/Blood Transfusion Reactions: No Reported Reaction Past Psychological History: Anxiety, Depression Smoking Status: Former smoker Past Alcohol Use History: None Reported Past Drug Use History: None Reported - Past Family History Father Additional Family Medical History / Comment(s): kidney Transplant Brother(s) Additional Family Medical History / Comment(s): diverticulitis, bowel resection and colostomy Mother Family Medical History: AFIB, COPD, Fibromyalgia, Hypertension, Mitral Valve Prolapse (MVP), Osteoarthritis (OA), Thyroid Disorder General Exam - General Exam Comments Initial Comments: Well appearing 52 year old female, no distress. Limitations: no limitations General appearance: alert, in no apparent distress Head exam: Present: atraumatic, normocephalic, normal inspection Eye exam: Present: normal appearance, PERRL, EOMI. Absent: scleral icterus, conjunctival injection, periorbital swelling ENT exam: Present: normal exam, mucous membranes moist Neck exam: Present: normal inspection. Absent: tenderness, meningismus, lymphadenopathy Respiratory exam: Present: normal lung sounds bilaterally. Absent: respiratory distress, wheezes, rales, rhonchi, stridor Cardiovascular Exam: Present: regular rate, normal rhythm, normal heart sounds. Absent: systolic murmur, diastolic murmur, rubs, gallop, clicks GI/Abdominal exam: Present: soft, normal bowel sounds. Absent: distended, tenderness, guarding, rebound, rigid Extremities exam: Present: normal inspection, full ROM, normal capillary refill. Absent: tenderness, pedal edema, joint swelling, calf tenderness Left Upper Leg exam: Present: normal inspection, tenderness Knee exam: Present: normal inspection, full ROM Lower Leg exam: Present: normal inspection, full ROM Neurovascular tendon exam: Present: no vascular compromise Gait: observed and limited by pain Back exam: Present: normal inspection Neurological exam: Present: alert, oriented X3, CN II-XII intact Psychiatric exam: Present: normal affect, normal mood Skin exam: Present: warm, dry, intact, normal color. Absent: rash Course Vital Signs 03/09/18 03/10/18 22:46 00:44 Temperature 98.3 F 97.5 F L Pulse Rate 68 59 L Respiratory 18 16 Rate Blood Pressure 107/88 111/55 O2 Sat by Pulse 96 100 Oximetry Medical Decision Making - Medical Decision Making 52 year old female presents with L leg pain today. No trauma or falls. She reports pain to anterior thign towards knee, and occasional paresthesa. She has normal capillary refill, and normal pulse. She has full ROM o f leg, and shows no laxity. US performed and negative for DVT. Soft compartments noted. Normal knee xray. Patient informed to ahve follow up with ortho and PCP. Given antiinflammatory medication. - Radiology Data Radiology results: report reviewed Normal exam. No evidence of DVT in the left leg. Left knee exam shows no acute process. Disposition Clinical Impression: Left leg pain, Knee pain, left Disposition: HOME SELF-CARE Condition: Good Instructions: Peripheral Neuropathy (ED), Knee Pain (ED) Additional Instructions: Patient advised to follow-up with primary care physician. Return to emergency department if any alarming signs or symptoms occur. Take the medicine as prescribed for the knee. Continue anti-inflammatory medication. Return to emergency department if any alarming signs or symptoms occur. Prescriptions: Ibuprofen 600 mg PO TID #20 tablet Is patient prescribed a controlled substance at d/c from ED?: No Referrals: Yakov Kebede MD [Primary Care Provider] - 1-2 days Seven Odell MD [STAFF PHYSICIAN] - 1-2 days Time of Disposition: 00:23
--- NOTE | 2018-03-10 00:08 | US ---
EXAMINATION TYPE: US venous doppler duplex LE LT DATE OF EXAM: 03/09/2018 11:55 PM COMPARISON: NONE CLINICAL HISTORY: Pain. Left leg pain SIDE PERFORMED: Left TECHNIQUE: The lower extremity deep venous system is examined utilizing real time linear array sonog billy with graded compression, doppler sonography and color-flow sonography. VESSELS IMAGED: External Iliac Vein (EIV) Common Femoral Vein Deep Femoral Vein Greater Saphenous Vein * Femoral Vein Popliteal Vein Small Saphenous Vein * Proximal Calf Veins (* superficial vessels) Left Leg: Negative for DVT No evidence for DVT left leg. IMPRESSION: Normal exam. No evidence of deep venous thrombosis in the left leg.
[2018-03-10] MEDS ORDERED: ACET/COD 300 MG/30 MG STARTER PACK 6 TAB BTL PO STA (00:09)
--- NOTE | 2018-03-10 00:15 | XR ---
EXAMINATION TYPE: XR knee complete LT DATE OF EXAM: 03/10/2018 COMPARISON: NONE HISTORY: Knee pain TECHNIQUE: 3 views FINDINGS: I see no fracture nor dislocation. Joint spaces are normal. There is no sign of joint effus ion. IMPRESSION: Negative left knee exam
[2018-03-10 00:46] VITALS: BP 111/55; PULSE 59; RESP 16; TEMP 97.5
== END 2018-03-10 00:44 | disposition home or self-care (01) ==
LOC: EC 22:42
DX: M79.605 Pain in left leg (principal); M25.562 Pain in left knee; J44.9 Chronic obstructive pulmonary disease, unspecified; M79.7 Fibromyalgia; K21.9 Gastro-esophageal reflux disease without esophagitis; F32.9 Major depressive disorder, single episode, unspecified; F41.9 Anxiety disorder, unspecified; Z87.891 Personal history of nicotine dependence; Z79.899 Other long term (current) drug therapy; Z88.1 Allergy status to other antibiotic agents; Z88.8 Allergy status to other drugs, medicaments and biological substances
CPT/HCPCS: 99284

== ENCOUNTER → 2018-08-17 | Outpatient (CLI) | payer MEDICARE, OTHER ==
--- NOTE | 2018-08-17 14:03 | CT ---
EXAMINATION TYPE: CT brain cspine wo con DATE OF EXAM: 08/17/2018 COMPARISON: 08/14/2017 HISTORY: Head and neck injury with subsequent pain CT DLP: 1589 mGycm. Automated Exposure Control for Dose Reduction was Utilized. TECHNIQUE: CT scan of the head and cervical spine are performed without contrast. FINDINGS: There is no acute intracranial hemorrhage, mass effect, or midline shift identified. Few patchy areas of hypoattenuation are seen within the subcortical and periventricular white matter. No suspicious extra-axial fluid collection. The ventricles and sulci are within normal limits in size. The globes are intact and the visualized sinuses are clear. Cervical spine is visualized in its entirety from C1 through upper thoracic levels and demonstrates s atisfactory alignment without evidence of acute fracture or dislocation. Prevertebral soft tissue ap pears within normal limits. Multilevel mild degenerative disc disease of the cervical spine and rever sandhya usual cervical lordosis are seen. Multilevel small central disc herniations are seen at C4-C5, C5 -C6 and C6-C7, more apparent than on the prior 08/14/2017. These are age indeterminant. These would be better characterized with MRI. The C1-C2 articulation is unremarkable. Moderate bullous emphysemat ous changes are seen of the lung apices with minimal atelectasis. IMPRESSION: 1. There is no acute fracture or dislocation evident in the cervical spine. 2. No acute intracranial hemorrhage, mass effect, or midline shift is seen. 3. Reversal of the usual cervical lordosis and multilevel mild degenerative disc disease of cervical spine. Additionally there are multiple small central disc herniations from C4 through C7 that would b e better characterized with MRI. 4. A few patchy areas of hypoattenuation in the subcortical and periventricular white matter, most co mmonly on the basis of chronic microangiopathy.
== END ==
LOC: RADCTMAIN 12:49
PROVIDERS: ATTEND Family Medicine
DX: I73.9 Peripheral vascular disease, unspecified (principal); M40.40 Postural lordosis, site unspecified; M50.30 Other cervical disc degeneration, unspecified cervical region; R90.89 Other abnormal findings on diagnostic imaging of central nervous system
CPT/HCPCS: 70450; 72125

== ENCOUNTER → 2019-02-08 | Outpatient (CLI) | payer MEDICARE, OTHER ==
--- NOTE | 2019-02-09 09:02 | MM ---
Reason for exam: clinical finding. Last mammogram was performed 1 year and 4 months ago. History: Family history of breast cancer in maternal aunt and breast cancer in maternal cousin. Benign left mammotome panel of the left breast, March 30, 2008. Took estrogen for 10 years beginning at age 33. Took progesterone beginning at age 33. Physical Findings: Nurse did not find any significant physical abnormalities on exam. MG 3D Diag Mammo W/Cad FLORY Bilateral CC and MLO view(s) were taken. Prior study comparison: October 18, 2017, bilateral MG 3d screening mammo w/cad. August 15, 2015, bilateral MG 3d screening mammo w/cad. The breast tissue is heterogeneously dense. This may lower the sensitivity of mammography. No suspicious abnormality. Left biopsy markers noted x 2. These results were verbally communicated with the patient and result sheet given to the patient on 02/08/19. ASSESSMENT: Negative, BI-RAD 1 RECOMMENDATION: Routine screening mammogram of both breasts in 1 year. Manage on a clinical basis with regard to non-focal breast pain.
--- NOTE | 2019-02-09 09:04 | USB ---
Reason for exam: clinical finding. History: Family history of breast cancer in maternal aunt and breast cancer in maternal cousin. Benign left mammotome panel of the left breast, March 30, 2008. Took estrogen for 10 years beginning at age 33. Took progesterone beginning at age 33. US Breast BILAT Right complete breast ultrasound includes all four quadrants, the retroareolar region and axilla. Finding demonstrates no cystic or solid lesion seen. Left complete breast ultrasound includes all four quadrants, the retroareolar region and axilla. Finding demonstrates no cystic or solid lesion seen. No suspicious sonographic abnormality. These results were verbally communicated with the patient and result sheet given to the patient on 02/08/19. ASSESSMENT: Negative, BI-RAD 1 RECOMMENDATION: Routine screening mammogram of both breasts in 1 year. Manage on a clinical basis with regard to bilateral non-focal breast pain.
== END | disposition home or self-care (01) ==
LOC: RADMAMWWP 14:22
PROVIDERS: ATTEND Family Medicine
DX: N64.4 Mastodynia (principal)
CPT/HCPCS: 77066; 76641; G0279; 77062

== ENCOUNTER → 2019-03-22 | Outpatient (CLI) | payer MEDICARE, OTHER ==
[2019-03-22 16:18] LABS: Basophils # (A) 0.1 k/uL (0-0.2); Basophils % (A) 1 %; Eosinophils # (A) 0.2 k/uL (0-0.7); Eosinophils % (A) 2 %; HCT 40.1 % (34.0-46.0); HGB 13.3 gm/dL (11.4-16.0); Lymphocytes # (A) 2.4 k/uL (1.0-4.8); Lymphocytes % (A) 21 %; MCH 30.1 pg (25.0-35.0); MCHC 33.3 g/dL (31.0-37.0); MCV 90.5 fL (80.0-100.0); Mean Platelet Volume 7.9; Monocytes # (A) 0.5 k/uL (0-1.0); Monocytes % (A) 4 %; Neutrophils # (A) 7.9 k/uL (1.3-7.7); Neutrophils % (A) 70 %; Platelet Count 312 k/uL (150-450); RBC 4.43 m/uL (3.80-5.40); RDW 15.1 % (11.5-15.5); WBC 11.3 k/uL (3.8-10.6)
[2019-03-22 21:28] LABS: Erythrocyte Sedimentation Rate 15 mm/hr (0-20)
[2019-03-23 00:50] LABS: Gliadin AB IgA, Deaminated NEGATIVE (NEGATIVE); Gliadin AB IgA, Unit 14.4 U/mL; Gliadin AB IgG, Deaminated NEGATIVE (NEGATIVE)
== END | disposition home or self-care (01) ==
LOC: LABWHC1 15:30
PROVIDERS: ATTEND Nurse Practitioner
DX: K52.9 Noninfective gastroenteritis and colitis, unspecified (principal)
CPT/HCPCS: 36415; 83516; 85025; 85652; 86140

== ENCOUNTER → 2019-03-31 | Outpatient (CLI) | payer MEDICARE, OTHER ==
[2019-03-31 18:48] LABS: African American GFR (CKD) 96.9 (60.0-200.0); Albumin 4.4 g/dL (3.80-4.90); Albumin/Globulin Ratio 1.91 (1.60-3.17); Anion Gap 8.4 mmol/L (4.00-12.00); BUN/Creat Ratio 16.25 Ratio (12.00-20.00); Calcium 9.5 mg/dL (8.7-10.3); Carbon Dioxide 26.6 mmol/L (21.6-31.8); Globulin 2.3 g/dL (1.6-3.3); Non-African American GFR(CKD) 83.6 (60.0-200.0); Potassium 4.6 mmol/L (3.5-5.5); Total Bilirubin 0.4 mg/dL (0.3-1.2); Total Protein 6.7 g/dL (6.2-8.2)
[2019-03-31 19:31] LABS: Hemoglobin A1C 5.8 % (4.0-6.0)
[2019-04-03 11:49] LABS: APTT 37 Sec(s) (<43); DRVVT 1:1 Mix 39 Sec(s) (<44); Dilute Russell Viper Venom 45 Sec(s) (<44)
== END | disposition home or self-care (01) ==
LOC: LABWHC1 12:06
PROVIDERS: ATTEND Family Medicine
DX: I10 Essential (primary) hypertension (principal); E11.9 Type 2 diabetes mellitus without complications; K52.9 Noninfective gastroenteritis and colitis, unspecified; Z79.899 Other long term (current) drug therapy
CPT/HCPCS: 36415; 80053; 83036; 84443; 84681; 85613; 85652; 85730; 86038

== ENCOUNTER → 2021-02-06 | Outpatient (CLI) | payer MEDICARE, OTHER ==
--- NOTE | 2021-02-06 07:53 | CT ---
EXAMINATION TYPE: CT chest wo con DATE OF EXAM: 02/06/2021 COMPARISON: Prior chest x-ray August 11, 2016 HISTORY: Pulmonary Fibrosis; COVID in October 2020 CT DLP: 117 mGycm. Automated Exposure Control for Dose Reduction was Utilized. TECHNIQUE: CT scan of the thorax is performed without IV contrast. High resolution protocol with 1 m m sequences obtained in 10 mm intervals in supine and prone technique. FINDINGS: LUNGS: Moderate underlying emphysematous changes greatest in the upper lungs. Mild upper lung pulmona ry fibrotic changes. Mild to moderate reticulation and fibrotic change anterior aspect right middle l obe. Mild to moderate interlobular septal thickening or fibrotic change posterior aspect right lower lobe. No pleural effusion. No bronchiectasis. No pulmonary masses. MEDIASTINUM: Lack of IV contrast and technique are noted to lower evaluation for adenopathy. There ar e no definitive greater than 1 cm mediastinal lymph nodes. No cardiomegaly or pericardial effusion is seen. Coronary artery calcification is present. OTHER: No additional significant abnormality is seen. IMPRESSION: Moderate emphysematous change with scattered [id number] fibrotic changes. No basila r end-stage fibrosis or honeycombing.
== END | disposition home or self-care (01) ==
LOC: RADCTMAIN 07:00
PROVIDERS: ATTEND Internal Medicine Critical Care Medicine
DX: J43.8 Other emphysema (principal); J84.10 Pulmonary fibrosis, unspecified
CPT/HCPCS: 71250

== ENCOUNTER → 2024-01-24 | Outpatient (CLI) | payer MEDICARE, OTHER ==
--- NOTE | 2024-01-24 20:20 | CTL ---
EXAMINATION TYPE: CT Low Dose Lung DATE OF EXAM: 01/24/2024 6:58 PM CLINICAL INDICATION:Female, 58 years old with history of Z12.2,F17.210; former smoker , history of to bacco use. COMPARISON: 02/06/2021. TECHNIQUE: Multiple axial non-contrast scans were obtained from approximately the lung apices through the upper abdomen. Coronal and sagittal reformatted images were obtained. Low dose technique was uti lized. CT DLP: 66.2 mGycm, Automated exposure control for dose reduction was used. CT Contrast: Contrast used: None Oral contrast used: None FINDINGS: ======== Lack of intravenous contrast and low dose technique limits the evaluation of the vascular and soft ti ssue structures. LUNGS: No evidence of pulmonary fibrosis. No evidence of focal consolidation, pneumothorax or pleural effusion. Centrilobular emphysema changes. Interstitial lung prominence throughout the lungs. Nodules: RUL: Suspected pleural calcifications in the medial right upper lung unchanged from at least 2020 . RML: None. RLL: None. EVA: None. LLL: None. AIRWAY: Patent and unremarkable. HEART: Size within normal limits. MEDIASTINUM: No gross evidence of adenopathy. VASCULATURE: No aortic aneurysm. MUSCULOSKELETAL: Mild disc degeneration changes are present throughout the thoracolumbar spine. SOFT TISSUES/LYMPH NODES: Unremarkable. LOWER NECK: No significant findings. UPPER ABDOMEN: No significant findings. IMPRESSION: 1. No pulmonary nodules. 2. Rcaj-xs-essldzph emphysema. CT LUNG RAD AND CT CHEST RECOMMENDATION: Lung-Rad 1 Negative: Continue annual screening with LDCT in 12 months. S Modifier (other clinically significant findings): None Recommend smoking cessation (if current smoker), or continuation of smoking cessation (if prior smoke r). Annual screening for lung cancer with low-dose computed tomography is recommended in adults ages 55 to 77 years who have a 30 pack-year smoking history and currently smoke or have quit within the pa st 15 years. Screening should be discontinued once a person has not smoked for 15 years or develops a health problem that substantially limits life expectancy or the ability or willingness to have curat yvrose lung surgery. Lung rads 2021 [email or web address]
== END | disposition home or self-care (01) ==
LOC: RADCTMAIN 18:30
PROVIDERS: ATTEND Internal Medicine Critical Care Medicine
DX: Z12.2 Encounter for screening for malignant neoplasm of respiratory organs (principal); J43.9 Emphysema, unspecified; Z87.891 Personal history of nicotine dependence
CPT/HCPCS: 71271